=== PATIENT | female | born 1995 | race Caucasian/White ===

== ENCOUNTER → 2017-11-29 | Outpatient (CLI) | payer MEDICAID ==
[~2017-11-29] MED LIST: ACET-789 PO; FERR325T18 PO; IBUP-1773 PO; PREN1TAB86 PO
--- NOTE | 2017-11-29 17:15 | Diagnostic Imaging Report ---
PROCEDURE: US OB SINGLE FETUS <14 WKS. TECHNIQUE: Multiple real-time grayscale images were obtained over the gravid uterus in various projections. INDICATION: Evaluation for size and dates. Unknown LMP. FINDINGS: There is presence of an intrauterine fluid collection compatible with gestational sac. Gestational sac configuration appears unremarkable. No abnormal perigestational fluid collections. The crown-rump length is 21.40 mm with an estimated age of 8 weeks 6 days. cardiac activity 181 beats per minute. Imaging of the adnexa demonstrates nonvisualization of either ovary. IMPRESSION: Early viable intrauterine with estimated age of 8 weeks 6 days for sonographic estimated date of delivery July 05, 2018. Dictated by: Dictated on workstation # [id number]
== END ==
LOC: RAD 10:03
PROVIDERS: ATTEND Family Medicine
DX: Z34.91 Encounter for supervision of normal pregnancy, unspecified, first trimester (principal); Z3A.08 8 weeks gestation of pregnancy
CPT/HCPCS: 76801

== ENCOUNTER 2018-06-16 06:47 | Outpatient (CLI) | payer MEDICAID ==
[~2018-06-16] VITALS: Ht 160 cm; Wt 113.5 kg
--- NOTE | 2018-06-16 06:55 | NUR ---
CHRISTINA WASHINGTON presented to unit ambulatory from home, accompanied by spouse James. with c/o CONTRACTIONS and decreased movement. CHRISTINA WASHINGTON weighed, gowned, voided, and to bed. EFHM and TOCO applied, VS taken. CHRISTINA WASHINGTON oriented to bed controls, call light, TV, heat, and A/C controls.
[2018-06-16 07:40] VITALS: BP 105/60
--- NOTE | 2018-06-16 08:50 | NUR ---
Yordy dc'd and steri strips applied. Addendum: 06/16/18 at 1128 by EVY MARX RN leah chart
--- NOTE | 2018-06-16 09:20 | NUR ---
Dr Angulo (rehabilitation inspector) no answer on cell phone - called office and message left on answering service. [phone] Text message on cell phone to call regarding pt admission. Addendum: 06/16/18 at 1132 by EVY MARX RN [phone] Angulo. Orders for discharge.
[2018-06-16 10:25] LABS: BILIRUBIN,URINE NEGATIVE (NEGATIVE); CLARITY,URINE SLIGHTLY CLOUDY; COLOR,URINE YELLOW; GLUCOSE, URINE (UA) NEGATIVE (NEGATIVE); KETONES,URINE NEGATIVE (NEGATIVE); LEUKOCYTE ESTERASE ,URINE NEGATIVE (NEGATIVE); NITRITE,URINE NEGATIVE (NEGATIVE); PH,URINE 6 (5-9); PROTEIN,URINE NEGATIVE (NEGATIVE); UROBILINOGEN,URINE NORMAL (NORMAL)
--- NOTE | 2018-06-16 10:45 | NUR ---
Discharge ambulatory to home. Pt denies contractions. Out pt OB discharge instructions given. Verbalized understanding.
[2018-06-16 10:47] LABS: BACTERIA,URINE FEW /HPF; RBC,URINE RARE /HPF; WBC,URINE RARE /HPF
--- NOTE | 2018-06-19 22:02 | Physician Query-Final Dx ---
SHARON STACK 06/19/18 2202: Clinic Account Progress/Dx Physician Query: Please give diagnosis Date of Service Jun 16, 2018 at 06:47 DAMIÁN FERREIRA DO 06/26/18 1110: Clinic Account Progress/Dx DIAGNOSIS: Diagnosis 37 week GA contractions, not in active labor SHARON STACK Jun 19, 2018 22:02 DAMIÁN FERREIRA DO Jun 26, 2018 11:10
== END 2018-06-16 10:45 ==
LOC: WSo 06:47 → LDRP 06:49 → WSo 10:45
PROVIDERS: ATTEND Family Medicine
DX: O62.9 Abnormality of forces of labor, unspecified (principal); Z3A.37 37 weeks gestation of pregnancy
CPT/HCPCS: 81000; 87088; 99213

== ENCOUNTER 2018-07-05 05:52 | Inpatient (IN) | payer MEDICAID ==
[~2018-07-05] VITALS: Ht 157.5 cm; Wt 118.5 kg
[2018-07-05] VITALS (34 sets, daily range): BP systolic 108–136; BP diastolic 52–83
--- NOTE | 2018-07-05 06:02 | NUR ---
CHRISTINA WASHINGTON presented to unit via ambulation from ED, accompanied by SO, with plan for induction of labor EDC 07/05/2018. CHRISTINA WASHINGTON weighed, gowned, voided, and to bed. EFHM and TOCO applied, VS taken. CHRISTINA WASHINGTON oriented to bed controls, call light, TV, heat, and A/C controls.
[2018-07-05] MEDS ORDERED: D5 LR IV SOLUTION 1,000 ML IV ONE (06:04)
[2018-07-05] MEDS: D5 LR IV SOLUTION 1,000 ML IV SCH ×2 (06:25→13:06)
[2018-07-05 06:43] LABS: BASOPHILS % (AUTO) 0 % (0-10); EOSINOPHILS # (AUTO) 0.1 10^3/uL (0.0-0.3); EOSINOPHILS % (AUTO) 2 % (0-10); HEMATOCRIT 29 % (35-52); HEMOGLOBIN 9.5 G/DL (11.5-16.0); LYMPHOCYTES # (AUTO) 2.3 X 10^3 (1.0-4.0); LYMPHOCYTES % (AUTO) 30 % (12-44); MEAN CORPUSCULAR HEMOGLOBIN 24 PG (25-34); MEAN CORPUSCULAR HGB CONC 32 G/DL (32-36); MEAN CORPUSCULAR VOLUME 75 FL (80-99); MEAN PLATELET VOLUME 9.1 FL (7.4-10.4); MONOCYTES # (AUTO) 0.5 X 10^3 (0.0-1.0); MONOCYTES % (AUTO) 6 % (0-12); NEUTROPHILS # (AUTO) 4.7 X 10^3 (1.8-7.8); NEUTROPHILS % (AUTO) 61 % (42-75); PLATELET COUNT 254 10^3/uL (130-400); RED CELL DISTRIBUTION WIDTH 15.8 % (10.0-14.5); WHITE BLOOD COUNT 7.6 10^3/uL (4.3-11.0)
[2018-07-05] MEDS ORDERED: OXYTOCIN/NORMAL SALINE 500 ML IV ONE (07:50)
[2018-07-05] MEDS ORDERED: OXYTOCIN/NORMAL SALINE 500 ML IV SCH ×2 (07:51→21:29)
--- NOTE | 2018-07-05 12:31 | History & Physical-OB ---
OB - Chief Complaint & HPI Date/Time Date of Admission: Date of Admission: Jul 05, 2018 at 05:52 Date seen by a Provider: Jul 05, 2018 Time Seen by a Provider: 12:15 Chief Complaint/History OB-Reason for Admission/Chief: Induction of Labor Hx : 2 Hx Para: 1 Expected Date of Delivery: Jul 05, 2018 Gestational Age in Weeks: 40 Gestational Age in Days: 0 Indication for induction: post dates Admission Nurse Assessment Rev: Yes History of Labs AB+, antibody neg, RI. HIV/HepB/RPR NR. GC/chlamydia neg. Glucola nml. GBS neg. Allergies and Home Medications Allergies Coded Allergies: latex (Verified Allergy, Unknown, 07/05/18) Home Medications Vit W-Ca,Fe,FA(<1 mg) 1 Each Tablet, 1 EACH PO DAILY, (Reported) Patient Home Medication List Home Medication List Reviewed: Yes OB - History Hx of Present Care: Yes Ultrasounds: Normal mid trimester US Obstetrical Complications: None Medical Complications: None Information Induced Hypertension: No Maternal Gestational Diabetes: No Hemorrhage: No Obstetrical History Hx : 2 Hx Para: 1 Hx # Term Pregnancies: 1 Hx # Pregnancies: 0 Number of Living Children: 1 Hx Termination: No Hx Multiple Gestation: No Hx Ectopic : No Hx Stillbirth: No Hx Complication: No Hx Induced Hypertens: No Hx Maternal Gestational Diabet: No Hx Hemorrhage: No Delivery History Hx Dystocia: No Hx Forceps Assisted Delivery: No Hx Vacuum Extraction Assisted: No Hx Placenta Abnormality: No Hx Distress: No Hx Large For Gestational Age I: No Hx Small for Gestational Age I: No Hx Section: No Hx Vaginal Delivery Post C-Sec: No Hx Blood Disorders: No Adverse Rxn to Tranfusion: No Patient Past Medical History Depression Social History/Family History HIV/AIDS: No Recent Infectious Disease Expo: No Sexually Transmitted Disease: Yes Alcohol Use: Denies Use Recreational Drug Use: No Smoking Cessation: Never smoker Immunizations Hepatitis A: No Hepatitis B: No Tetanus Booster (TDap): Less than 5yrs (05/09/2018) Rubella: immune OB - Admission Exam Physical Exam Vitals: Vital Signs 07/05/18 07/05/18 07/05/18 07:15 09:45 10:15 Temp 97.4 Pulse 93 Resp 18 B/P (MAP) 119/64 (82) O2 Delivery Room Air HEENT: NCAT Abdomen: Non tender Extremities: Edema Cervical Dilatation: 6cm Effacement: 50% Station: -3 Membranes: Intact Heart Rate: 140's Accelerations: Accelerations Present Decelerations: No Decelerations Short Term Variability: Present Contracting Executive Variability: Average (6-25) Contractions on Admission: None Glaser Scoring Tool (Modified) Dilation (cm): >5cm (3) Effacement (%): 51-79% (2) Descent/Station: -3 (0) Cervix Consistency: Soft (2) Cervix Position: Posterior (0) Add 1 point for: Each previous vaginal delivery (1) Glaser Score: 8 Labs Laboratory Tests Test 07/05/18 06:25 Range/Units White Blood Count 7.6 4.3-11.0 10^3/uL Red Blood Count 3.94 L 4.35-5.85 10^6/uL Hemoglobin 9.5 L 11.5-16.0 G/DL Hematocrit 29 L 35-52 % Mean Corpuscular Volume 75 L 80-99 FL Mean Corpuscular Hemoglobin 24 L 25-34 PG Mean Corpuscular Hemoglobin Concent 32 32-36 G/DL Red Cell Distribution Width 15.8 H 10.0-14.5 % Platelet Count 254 130-400 10^3/uL Mean Platelet Volume 9.1 7.4-10.4 FL Neutrophils (%) (Auto) 61 42-75 % Lymphocytes (%) (Auto) 30 12-44 % Monocytes (%) (Auto) 6 0-12 % Eosinophils (%) (Auto) 2 0-10 % Basophils (%) (Auto) 0 0-10 % Neutrophils # (Auto) 4.7 1.8-7.8 X 10^3 Lymphocytes # (Auto) 2.3 1.0-4.0 X 10^3 Monocytes # (Auto) 0.5 0.0-1.0 X 10^3 Eosinophils # (Auto) 0.1 0.0-0.3 10^3/uL Basophils # (Auto) 0.0 0.0-0.1 10^3/uL OB - Assessment/Plan/Diagnosis Assessment Assessment: induction of labor Admission Dx Induction of labor at 40 weeks gestation Admission Status: Inpatient Order (span 2 midnights) Reason for Inpatient Admission: Induction, labor and delivery and course Plan Plan: Induction Induction Method: per Pitocin Protocol RANJANA HSU MD Jul 05, 2018 12:31
--- NOTE | 2018-07-05 12:33 | Labor Progress Note ---
Labor Progress Note Labor Progress Note Date Seen by Provider: Jul 05, 2018 Time Seen by Provider: 12:15 Subjective: Pt denies complaints. Contractions moderately painful, on 18 mU pitocin Objective: Cervical exam: 60/-3 Consistency: soft Position: posterior Presentation: vertex heart tones: 140 beats per minute, moderate variability, reactive Tocometer: 3-4 ctx/10 minutes Assessment/Plan: Haven Valdes is a 22 /Para / ,Gestational Age (wks)40 here for induction of labor. FSE placed/TOCO Continue pitocin/AROM done with clear fluid Anesthesia: none Anticipate vaginal delivery. Vitals - Labs Vital Signs - I&O Vital Signs Date Time Temp Pulse Resp B/P (MAP) Pulse Ox O2 Delivery O2 Flow Rate FiO2 07/05/18 10:30 07/05/18 10:15 93 18 119/64 (82) 07/05/18 10:00 07/05/18 09:45 07/05/18 09:45 97.4 88 18 112/62 (79) 07/05/18 09:30 83 18 108/59 (75) 07/05/18 09:15 82 18 111/57 (75) 07/05/18 09:00 82 18 110/58 (75) 07/05/18 07:15 96.5 93 18 112/68 (83) Room Air Labs Laboratory Tests 07/05/18 06:25: White Blood Count 7.6, Red Blood Count 3.94L, Hemoglobin 9.5L, Hematocrit 29L, Mean Corpuscular Volume 75L, Mean Corpuscular Hemoglobin 24L, Mean Corpuscular Hemoglobin Concent 32, Red Cell Distribution Width 15.8H, Platelet Count 254, Mean Platelet Volume 9.1, Neutrophils (%) (Auto) 61, Lymphocytes (%) (Auto) 30, Monocytes (%) (Auto) 6, Eosinophils (%) (Auto) 2, Basophils (%) (Auto) 0, Neutrophils # (Auto) 4.7, Lymphocytes # (Auto) 2.3, Monocytes # (Auto) 0.5, Eosinophils # (Auto) 0.1, Basophils # (Auto) 0.0 RANJANA HSU MD Jul 05, 2018 12:33
[2018-07-05] MEDS ORDERED: CATHETER FLUSH 10 ML SYR IV SCH ×2 (14:00→22:00)
[2018-07-05] MEDS ORDERED: SUFENTA 0.6MCG/ML BUPIVA 0.125 100 ML ONE (19:12)
[2018-07-05] MEDS ORDERED: LACTATED RINGERS 1,000 ML IV ONE (19:15)
[2018-07-05] MEDS ORDERED: LACTATED RINGERS 1,000 ML IV SCH (19:47)
[2018-07-05] MEDS ORDERED: ONDANSETRON 4 MG/2 ML (SDV) Z0FRAN IV PRN (20:00)
[2018-07-05] MEDS ORDERED: NALOXONE 0.4 MG/ML 1 ML (NARCAN) VIAL IV PRN ×2 (20:00)
[2018-07-05] MEDS ORDERED: EPIDURAL (SUFENTA 0.6MCG/ML BUPIVA 0.125%) 100 ML BAG EPI SCH (20:00)
[2018-07-05] MEDS ORDERED: METOCLOPRAMIDE INJ 10 MG/2 ML (REGLAN) IV PRN (20:00)
[2018-07-05] MEDS ORDERED: diphenhydrAMINE 50 MG/ML INJ (BENADRYL) IV PRN (20:00)
[2018-07-05] MEDS ORDERED: CITRIC ACID/SOB CIT (BICITRA) 30 ML UDC ONE (20:32)
[2018-07-05] MEDS ORDERED: metroNIDAZOLE 500MG/100ML IVPB 100 ML ONE (20:32)
[2018-07-05] MEDS ORDERED: ceFAZolin 2 GM IV Premixed 50 ML ONE (20:33)
[2018-07-05] MEDS ORDERED: FAMOTIDINE 20MG/2ML IV (PEPCID) ONE (20:33)
[2018-07-05] MEDS ORDERED: D5 LR IV SOLUTION 1,000 ML IV SCH ×2 (21:26→21:29)
[2018-07-05] MEDS ORDERED: ONDANSETRON 4 MG/2 ML (SDV) Z0FRAN ONE (21:29)
[2018-07-05] MEDS ORDERED: LIDOCAINE PF 2% 5 ML (XYLOCAINE) VIAL ONE (21:29)
[2018-07-05] MEDS ORDERED: OXYTOCIN/NORMAL SALINE 1,000 ML IV ONE (21:29)
[2018-07-05] MEDS ORDERED: BUPIVACAINE 0.5% 30 ML (SENSORCAINE) VIAL ONE (21:29)
[2018-07-05] MEDS ORDERED: fentaNYL INJECTION 100 MCG/2 ML AMP ONE (21:29)
[2018-07-05] MEDS ORDERED: ONDANSETRON 4 MG/2 ML (SDV) Z0FRAN IVP PRN ×2 (21:30→23:00)
[2018-07-05] MEDS ORDERED: ceFAZolin INJECTION 2,000 MG in WATER (STERILE) FOR INJECTION 10 ML IV ONE (21:30)
[2018-07-05] MEDS ORDERED: metroNIDAZOLE 500MG/100ML IVPB 100 ML IV ONE (21:30)
[2018-07-05] MEDS ORDERED: MEASLES,MUMPS,RUBELLA 1 EA INJ SC SCH (21:30)
[2018-07-05] MEDS ORDERED: TETANUS,DIPTH,PERTUSS P/F (BOOSTRIX) 0.5 ML VIAL IM SCH (21:30)
[2018-07-05] MEDS ORDERED: METHYLERGONOVINE 0.2 MG/ML (METHERGINE) AMP ONE (22:17)
[2018-07-05] MEDS ORDERED: MEPERIDINE (DEMEROL) INJ 50 MG/ML IVP ONE (23:00)
[2018-07-05] MEDS ORDERED: morphine INJ 10 MG/ML 1ML (SYR OR VIAL) IVP ONE (23:00)
[2018-07-06] MEDS ORDERED: KETOROLAC 30 MG/ML VIAL ONE (00:03)
[2018-07-06] MEDS: KETOROLAC 30 MG/ML VIAL IV SCH ×2 (00:10→05:49)
[2018-07-06] MEDS ORDERED: METOCLOPRAMIDE INJ 10 MG/2 ML (REGLAN) IV ONE (00:45)
[2018-07-06] MEDS ORDERED: FAMOTIDINE 20MG/2ML IV (PEPCID) IV ONE (00:45)
[2018-07-06] MEDS ORDERED: CITRIC ACID/SOB CIT (BICITRA) 30 ML UDC PO ONE (00:45)
[2018-07-06 01:57] VITALS: BP 108/70
[2018-07-06] MEDS ORDERED: METHYLERGONOVINE 0.2 MG/ML (METHERGINE) AMP ONE (03:08)
[2018-07-06] MEDS ORDERED: METHYLERGONOVINE 0.2 MG/ML (METHERGINE) AMP IM ONE (03:15)
--- NOTE | 2018-07-06 03:55 | OPERATIVE REPORT ---
DATE OF SERVICE: 07/05/2018 PREOPERATIVE DIAGNOSIS: Term at 40 weeks' gestation in labor with failure to progress/cephalopelvic disproportion. POSTOPERATIVE DIAGNOSIS: Term at 40 weeks' gestation in labor with failure to progress/cephalopelvic disproportion with persistent OP. OPERATIVE PROCEDURE: Primary low transverse delivery of a viable male with Apgars of 8 and 9 at 1 and 5 minutes. Expected weight 9 pounds 9 ounces. time of 22:11 and a cord blood pH of 7.31. MULTIFOCAL BUTTON GENERATOR FOR DELIVERY: Dr. Oliva. OPERATIVE DESCRIPTION: With the patient in the supine position under satisfactory epidural analgesia, she was prepped and draped in the usual fashion for abdominal surgery. Fajardo catheter had been placed in the urinary bladder during labor that was left to dependent drainage. A Pfannenstiel incision made through skin with a scalpel. The patient's abdomen entered in the usual manner. Bladder retractor placed in position, clean scalpel used to make a 4 cm hysterotomy incision transversely across the lower uterine segment that was extended by blunt dissection as well. A vigorous viable male infant was delivered via the uterine incision and infant had stats as noted above. The was bulb suctioned on delivery of the head and again on completion of delivery. The umbilical cord was doubly clamped and cut and the infant passed to Dr. Oliva, fast food cook in attendance for delivery. Cord bloods were obtained. The placenta delivered spontaneously Porter. It was normal with a 3-vessel cord. The uterus was exteriorized and to wipe clean with laparotomy sponge. Uterine incision then closed with a running locked suture of 2-0 Vicryl. The uterus was quite boggy. Blood loss was not excessive at this point, but the patient was responding only minimally to Pitocin and had gotten a dose of Methergine with very little obvious response. A modified B-Ross suture was placed using 2-0 chromic sutures. This compressed the uterus nicely and blood loss was fairly minimal from that point on. The uterus was now returned to abdominal cavity. All blood clot and debris removed from the abdominal cavity. Sponge and needle counts correct, hemostasis assured. The anterior parietal peritoneum was closed with a running suture of 2-0 Vicryl. Rectus muscles were closed with that suture as well. The rectus fascia was closed with 2-0 Vicryl, subcutaneous tissue was closed with 2-0 Vicryl and the skin was stapled. Sponge and needle counts were correct on completion of delivery. Estimated blood loss was around 500 mL. The patient tolerated the delivery well and was transferred to recovery room in stable condition. The infant had been stable to the full term nursery under the care of Dr. Oliva. Job ID: [id number] DocumentID: [id number] Dictated Date: 07/05/2018 22:48:17 Orthopedic Surgeon Date: 07/06/2018 03:54:36 Dictated By: JAMIR SHIN MD
[2018-07-06] MEDS: oxyCODONE/APAP 10/325MG (PERCOCET 10) TABLET PO PRN ×3 (04:28→16:39)
[2018-07-06 05:53] VITALS: BP 126/75
--- NOTE | 2018-07-06 07:40 | Progress Note-Standard ---
Standard Progress Note Progress Notes/Assess & Plan Date Seen by a Provider: Jul 06, 2018 Time Seen by a Provider: 07:38 Progress/Assessment & Plan This patient is without complaint. She is ambulating, voiding, tolerating oral intake well and has pain control. Patient denies chest pain, denies direct, denies nausea vomiting, denies headache. Vital Signs 07/05/18 07/06/18 23:55 05:53 Temp 98.4 Pulse 101 Resp 18 B/P (MAP) 126/75 (92) Pulse Ox 96 O2 Delivery Room Air O2 Flow Rate 0 Signs are stable. Patient is afebrile. The abdomen is benign. Fundus is firm below the umbilicus is nontender. The surgical incision is clean dry and intact Extremities show no clubbing or cyanosis. Homans sign. Assessment and plan postoperative day number 1 status post primary delivery doing well. Plan is for routine convalescence care JAMIR SHIN MD Jul 06, 2018 07:40
--- NOTE | 2018-07-06 07:40 | NUR ---
Dr. Mayorga here to see pt. No new orders rec'd
--- NOTE | 2018-07-06 07:42 | Anesthesia-Regional Post-Op ---
Regional Patient Condition Mental Status: Alert, Oriented x3 Circulation: Same as Pre-Op Headache: Absent Sensation: Full Recovery Motor Block: Absent Post Op Complications Complications None Follow Up Care/Instructions Patient Instructions None needed. Anesthesia/Patient Condition Patient is doing well, no complaints, stable vital signs, no apparent adverse anesthesia problems. No complications reported per nursing. NIYA ZUNIGA CRNA Jul 06, 2018 07:42
[2018-07-06] MEDS ORDERED: OXYC1TAB12 PO (07:43)
[2018-07-06] MEDS ORDERED: IBUP-1780 PO (07:43)
[2018-07-06] MEDS ORDERED: DOCU100C37 PO (07:43)
--- NOTE | 2018-07-06 07:44 | Discharge Instructions ---
Discharge Instructions Discharge Medications New, Converted or Re-Newed RX: RX on Chart Patient Instructions Patient Instructions: as directed Return to The Hospital For: as directed Activity & Diet Discharge Diet: No Restrictions Activity as Tolerated: No Orders-Post D/C & Referrals Follow Up Appt: RTC 1 week for incision check with Dr. Mayorga Call to make follow up appt. for patient with Dr. Oliva in 6 weeks. Wound Care: Remove emma, apply benzoin and steri strips. Activity Per routine post instructions. Please call in RX to patient pharmacy. Diet as tolerated Patient may shower or tub bathe as desired. Continue home meds JAMIR MAYORGA MD Jul 06, 2018 07:44
--- NOTE | 2018-07-06 07:50 | NUR ---
To room to introduce self to pt. Pt just out of shower, denies needs or concerns at this time.
[2018-07-06 08:00] VITALS: BP 110/64
[2018-07-06] MEDS: DOCUSATE SODIUM 100 MG (COLACE) CAP PO SCH (09:26)
--- NOTE | 2018-07-06 11:30 | NUR ---
PT UP AMBULATING IN HALLWAYS
[2018-07-06] MEDS ORDERED: IBUPROFEN 800 MG (MOTRIN) TAB PO ONE ×2 (11:57→18:06)
[2018-07-06] MEDS: IBUPROFEN 800 MG (MOTRIN) TAB PO SCH ×2 (12:01→18:10)
[2018-07-06 12:02] VITALS: BP 112/68
--- NOTE | 2018-07-06 16:00 | NUR ---
PT UP AMBULATING IN HALLWAYS
[2018-07-06 16:36] VITALS: BP 114/71
--- NOTE | 2018-07-06 17:00 | NUR ---
DR SHIN HERE TO SEE PT. NO NEW ORDERS REC'D
[2018-07-07 00:12] VITALS: BP 94/59
[2018-07-07] MEDS: IBUPROFEN 800 MG (MOTRIN) TAB PO SCH ×3 (00:12→12:15)
[2018-07-07] MEDS: DOCUSATE SODIUM 100 MG (COLACE) CAP PO SCH ×2 (00:12→08:34)
[2018-07-07 06:13] VITALS: BP 103/60
--- NOTE | 2018-07-07 07:42 | Progress Note-Standard ---
Standard Progress Note Progress Notes/Assess & Plan Date Seen by a Provider: Jul 07, 2018 Time Seen by a Provider: 07:40 Progress/Assessment & Plan This patient is without complaint. She is ambulating, voiding, tolerating oral intake well and has pain control. Patient denies chest pain, denies direct, denies nausea vomiting, denies headache. Vital Signs 07/05/18 07/06/18 23:55 05:53 Temp 98.4 Pulse 101 Resp 18 B/P (MAP) 126/75 (92) Pulse Ox 96 O2 Delivery Room Air O2 Flow Rate 0 Signs are stable. Patient is afebrile. The abdomen is benign. Fundus is firm below the umbilicus is nontender. The surgical incision is clean dry and intact Extremities show no clubbing or cyanosis. Homans sign. Assessment and plan postoperative day number 1 status post primary delivery doing well. Plan is for routine convalescence care July 07, 2018 Patient without complaint. She is ambulating, voiding, tolerating oral intake well and has good pain control. Patient is requesting discharge home. Vital Signs Date Time Temp Pulse Resp B/P (MAP) Pulse Ox O2 Delivery O2 Flow Rate FiO2 07/07/18 06:13 98.5 95 18 103/60 (74) 98 Room Air 07/07/18 00:12 98.3 81 18 94/59 (71) 97 Room Air 07/06/18 16:36 96.8 98 18 114/71 (85) 99 Room Air 07/06/18 12:02 98.5 85 18 112/68 (83) 99 07/06/18 08:00 97.2 103 18 110/64 (79) 99 Room Air I & O 07/07/18 07:00 Intake Total 800 ml Output Total 1250 ml Balance -450 ml Signs are stable. Patient is afebrile. The abdomen is benign. Fundus is firm below the umbilicus and nontender. The incision is clean dry and intact. Extremities show no clubbing or cyanosis. There is no Homans sign. Assessment and plan postoperative day number 2 status post primary delivery at 40 weeks gestation. Plan is for discharge home with follow-up in clinic Final Diagnosis 40 week primary delivery JAMIR SHIN MD Jul 07, 2018 07:42
[2018-07-07 08:00] VITALS: BP 113/59
--- NOTE | 2018-07-07 08:00 | NUR ---
DR. SHIN HERE TO SEE PT. A.M. ASSESSMENT COMPLETED AND VSS. PLANNING TO GO HOME TODAY.
[2018-07-07] MEDS: oxyCODONE/APAP 10/325MG (PERCOCET 10) TABLET PO PRN (08:35)
--- NOTE | 2018-07-07 09:00 | NUR ---
PT HAS HAD THE TDAP VACCINE.
--- NOTE | 2018-07-07 09:30 | NUR ---
DR. JOHN HERE TO SEE . PLAN FOR INFANT TO GO HOME.
--- NOTE | 2018-07-07 10:30 | NUR ---
INFANT WITH OCC SUPPLEMENT. HAS BEEN IN ROOM OFFERING ASSIST.
--- NOTE | 2018-07-07 11:00 | NUR ---
[id number] HERE TO TAKE PICTURES.
--- NOTE | 2018-07-07 11:50 | NUR ---
JORGE D/C'ED AND STERI STRIPS APPLIED. TINCTURE OF BENZOIN A SKIN PREP UTILIZED. EDGES WELL-APPROXIMATED, NO REDNESS, DRAINAGE, OR OPEN AREAS. TOLERATED WELL.
--- NOTE | 2018-07-07 13:30 | NUR ---
DISCHARGE INSTRUCTIONS REVIEWED WITH COPY TO PT. RX GIVEN AND CALLED TO [facility]. STATES UNDERSTANDING OF ALL INSTRUCTIONS AND NEED TO F/U SCHEDULED AND NEEDED.
[2018-07-07 14:00] VITALS: BP 113/59
--- NOTE | 2018-07-07 14:00 | NUR ---
DISMISSED FROM [facility] VIA W/C WITH INFANT TO FAMILY CAR IN STABLE CONDITION ACC BY JOSE SHETH RN.
== END 2018-07-07 14:00 | disposition home or self-care (01) | DRG 788 ==
LOC: LDRP 05:52
PROVIDERS: ADMIT Family Medicine; ATTEND Family Medicine
PROC: 3E033VJ Introduction of Other Hormone into Peripheral Vein, Percutaneous Approach (ICD-10-PCS; 2018-07-05)
PROC: 10D00Z1 Extraction of Products of Conception, Low, Open Approach (ICD-10-PCS; principal; 2018-07-05 21:54)
DX: O64.0XX0 Obstructed labor due to incomplete rotation of fetal head, not applicable or unspecified (principal); O33.9 Maternal care for disproportion, unspecified; Z3A.40 40 weeks gestation of pregnancy; Z37.0 Single live birth
CPT/HCPCS: 36415; 85025; 86850; 86900; 86901; 88307; 94664

== ENCOUNTER 2018-07-29 02:25 | Emergency (ER) | payer MEDICAID ==
[~2018-07-29] VITALS: Ht 157.5 cm; Wt 104.3 kg
[~2018-07-29 02:25] MED LIST changes: +DOCU100C37 PO; +IBUP-1780 PO; +OXYC1TAB12 PO
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
[2018-07-29] MEDS ORDERED: LIDOCAINE 1% INJ 20 ML 20 ML VIAL INJ ONE (03:45)
--- NOTE | 2018-07-29 03:47 | ED Integumentary General ---
General Chief Complaint: Skin/Wound Problems Stated Complaint: HANGNAIL ON RT POINTER FINGER-INFECTED Nursing Triage Note: Right index finger swollen around the nailbed. Pt said it started swelling today and is painful Source: patient Exam Limitations: no limitations History of Present Illness Date Seen by Provider: July 29, 2018 Time Seen by Provider: 03:32 Initial Comments Here with report of right index finger and thumb side aspect of the nail that is swollen and painful. Worse today and states that it changed color. Reports that the finger is throbbing. No reported injury. No fever. She is 3 weeks and is breast-feeding. She take ibuprofen 800 mg about 2 hours ago. Timing/Duration: yesterday, getting worse Severity: moderate Location: hands Possible Cause: no cause identified Associated Symptoms: change in skin texture, edema; No fever Allergies and Home Medications Allergies Coded Allergies: latex (Verified Allergy, Unknown, 07/05/18) Home Medications Docusate Sodium 100 Mg Capsule, 100 MG PO BID Prescribed by: JAMIR MARQUEZ on 07/06/18 0743 Ibuprofen 800 Mg Tablet, 800 MG PO Q8H Prescribed by: JAMIR MARQUEZ on 07/06/18 0743 Oxycodone HCl/Acetaminophen 1 Each Tablet, 1 TAB PO Q4HR PRN for PAIN-MODERATE TO SEVERE Prescribed by: JAMIR MARQUEZ on 07/06/18 0743 Vit W-Ca,Fe,FA(<1 mg) 1 Each Tablet, 1 EACH PO DAILY, (Reported) Patient Home Medication List Home Medication List Reviewed: Yes Review of Systems Review of Systems Constitutional: see HPI; No chills, No fever Respiratory: no symptoms reported Cardiovascular: no symptoms reported Skin: see HPI, change in color, lesions Past Vuyatxn-Ceplvz-Lbblsg Hx Past Med/Social Hx: Reviewed Nursing Past Med/Soc Hx Patient Social History Alcohol Use: Denies Use Recreational Drug Use: No Smoking Status: Never a Smoker Former Smoker, Quit: Dec 19, 2013 2nd Hand Smoke Exposure: No Recent Foreign Travel: No Contact w/Someone Who Travel: No Recent Infectious Disease Expo: No Recent Hopitalizations: No Immunizations Up To Date Tetanus Booster (TDap): Less than 5yrs PED Vaccines UTD: No Seasonal Allergies Seasonal Allergies: No Past Medical History Surgeries: Yes (pilonidal cyst) Respiratory: No Cardiac: No Neurological: No Reproductive Disorders: No Female Reproductive Disorders: Denies Sexually Transmitted Disease: Yes HIV/AIDS: No Genitourinary: No Gastrointestinal: No Musculoskeletal: No Endocrine: No HEENT: No Cancer: No Psychosocial: No Anxiety, PTSD, Depression Integumentary: No Blood Disorders: No Adverse Reaction/Blood Tranf: No Family Medical History Reviewed Nursing Family Hx FH: hemophilia paternal gm Physical Exam Vital Signs Vital Signs - First Documented 07/29/18 02:46 Temp 97.8 Pulse 90 Resp 16 B/P (MAP) 97/64 (75) Pulse Ox 99 O2 Delivery Room Air Capillary Refill : Less Than 3 Seconds General Appearance: WD/WN, no apparent distress Cardiovascular: regular rate, rhythm, no murmur Respiratory: lungs clear, normal breath sounds Skin: warm/dry, other (right index finger and thumb side of the nailbed with paronychia and some redness) Procedures/Interventions I&D : Blade Size: 10 I & D Procedure: betadine prep Progress Paronychia I&D to right index finger thumb side. Tolerated procedure well palpitations. Small amount of purulent drainage obtained. Culture obtained. Progress/Results/Core Measures Results/Orders My Orders Orders - NINA GUERRA MD Wound Culture (07/29/18 03:41) Lidocaine 1% Inj 20 Ml (Xylocaine 1% Inj (07/29/18 03:45) Vital Signs/I&O 07/29/18 02:46 Temp 97.8 Pulse 90 Resp 16 B/P (MAP) 97/64 (75) Pulse Ox 99 O2 Delivery Room Air Blood Pressure Mean: 75 Progress Progress Note : Progress Note Seen and evaluated. Digital block right index finger with 1% lidocaine. I&D of paronychia on right index finger. Wound culture obtained. Covered with antibiotic ointment and dressing. Tolerated procedure well with no complications. Keflex 500 mg by mouth given. Discharged home with return precautions. Patient verbalize understanding instructions and agreement with plan. Departure Impression Primary Impression: Paronychia of finger of right hand Disposition: 01 HOME, SELF-CARE Condition: Improved Departure-Patient Inst. Decision time for Depature: 04:05 Referrals: RANJANA HSU MD (PCP/Family) Primary Care Physician Patient Instructions: Paronychia (DC) Add. Discharge Instructions: All discharge instructions reviewed with patient and/or family. Voiced understanding. Take medications as directed. You may take ibuprofen 800 mg every 8 hours as needed for pain. Return for worse pain, swelling, red streaks up the hand, fever or other concerns as needed. Keep dressing in place until Tuesday morning and that he may remove. You may change dressing as needed if it becomes soiled. Use antibiotic ointment and Band-Aid over wound after dressing is removed. You may do this for the next several days as needed. Scripts Cephalexin (Cephalexin) 500 Mg Tablet 500 MG PO QID, #28 TAB 0 Refills Prov: NINA GUERRA MD 07/29/18 NINA GUERRA MD July 29, 2018 03:47
[2018-07-29] MEDS ORDERED: CEPH500T PO (04:07)
[2018-07-29] MEDS ORDERED: CEPHALEXIN 250 MG (KEFLEX) CAP PO STA (04:08)
[2018-07-29 04:16] VITALS: BP 99/62
== END 2018-07-29 04:18 | disposition home or self-care (01) ==
LOC: EDUNIT# 02:25 → ER 02:27
DX: O99.73 Diseases of the skin and subcutaneous tissue complicating the puerperium (principal); L03.011 Cellulitis of right finger; O99.345 Other mental disorders complicating the puerperium; F41.9 Anxiety disorder, unspecified; F32.9 Major depressive disorder, single episode, unspecified; F43.10 Post-traumatic stress disorder, unspecified; Z87.891 Personal history of nicotine dependence; Z91.040 Latex allergy status; Z98.890 Other specified postprocedural states
CPT/HCPCS: 87070; 87077; 87186; 87205; 99283

== ENCOUNTER 2019-03-09 20:13 | Emergency (ER) | payer SELFPAY ==
[~2019-03-09 20:13] MED LIST changes: +CEPH500T PO
== END 2019-03-09 20:56 | disposition left against medical advice (07) ==
LOC: EDUNIT# 20:13 → ER 20:14
DX: R11.10 Vomiting, unspecified (principal); R10.9 Unspecified abdominal pain

== ENCOUNTER 2020-09-03 05:41 | Outpatient (CLI) | payer OTHER ==
[~2020-09-03] VITALS: Ht 162.6 cm; Wt 126.4 kg
[2020-09-09] MEDS ORDERED: FERR-84 PO (12:19)
[2020-09-10] MEDS ORDERED: ACHD5005 PO (11:22)
== END 2020-09-09 12:20 | disposition home or self-care (01) ==
LOC: PREOP 05:41
PROVIDERS: ATTEND Surgery
DX: Z01.818 Encounter for other preprocedural examination (principal)

== ENCOUNTER 2020-09-10 09:41 | Day surgery (SDC) | payer OTHER ==
[~2020-09-10] VITALS: Ht 162.6 cm; Wt 126.4 kg
[2020-09-10] VITALS (11 sets, daily range): BP systolic 95–131; BP diastolic 48–80
[~2020-09-10 09:41] MED LIST changes: +FERR-84 PO
[2020-09-10] MEDS ORDERED: LIDOCAINE/EPI 1%-1:100,000 (XYLOCAINE) 20ML ONE (10:01)
[2020-09-10] MEDS ORDERED: ceFAZolin 2 GM IV Premixed 50 ML IV ONE (10:15)
[2020-09-10] MEDS ORDERED: LACTATED RINGERS 1,000 ML IV PRN (10:15)
[2020-09-10] MEDS ORDERED: SEVOFLURANE (ULTANE) 15 ML INHAL SOLN ONE ×2 (10:28→11:05)
[2020-09-10] MEDS ORDERED: ONDANSETRON 4 MG/2 ML (SDV) Z0FRAN ONE (10:28)
[2020-09-10] MEDS ORDERED: fentaNYL INJ 100 MCG/2 ML AMP ONE (10:28)
[2020-09-10] MEDS ORDERED: ROCURONIUM 10 MG/ML 5 ML SYRINGE IV ONE (10:28)
[2020-09-10] MEDS ORDERED: LIDOCAINE PF 2% 5 ML (XYLOCAINE) VIAL ONE (10:28)
[2020-09-10] MEDS ORDERED: proPOfol 200 MG/20 ML (DIPRIVAN) VIAL IV ONE ×2 (10:28→11:07)
[2020-09-10] MEDS ORDERED: MIDAZOLAM 2 MG/2 ML (VERSED) VIAL ONE (10:29)
--- NOTE | 2020-09-10 10:32 | Progress Note-Pre Operative ---
Pre-Operative Progress Note H&P Reviewed The H&P was reviewed, patient examined and no changes noted. Time Seen by Provider: 10:02 Date H&P Reviewed: Sep 10, 2020 Time H&P Reviewed: 10:02 Pre-Operative Diagnosis: Pilonidal cyst ALFONZO CAREY DO Sep 10, 2020 10:32
[2020-09-10] MEDS ORDERED: LIDOCAINE JELLY 2% 6 ML SYRINGE ONE (10:53)
--- NOTE | 2020-09-10 11:21 | Progress Note-Post Operative ---
Post-Operative Progess Note Surgeon (s)/Hvac Installation Technician (s) Surgeon ALFONZO CAREY DO Hvac Installation Technician: none Pre-Operative Diagnosis Pilonidal cyst Post-Operative Diagnosis same pending path Procedure & Operative Findings Date of Procedure 09/10/20 Procedure Performed/Findings I&D and excision of pilonidal cyst with debridement Anesthesia Type GET Estimated Blood Loss Estimated blood loss (mL): scant Specimens/Packing Specimens Removed pilonidal cyst ALFONZO CAREY DO Sep 10, 2020 11:21
[2020-09-10] MEDS ORDERED: ACHD5005 PO (11:22)
--- NOTE | 2020-09-10 11:23 | Discharge Inst-Surgical ---
Discharge Inst-Surgical Depart Medication/Instructions New, Converted or Re-Newed RX: RX Given to Pt/Family Patient Instructions Follow up Appt: Make appointment for 1 week. [phone] Instructions: No lifting greater than 20 pounds. No strenuous activity. May shower in 24 hours, no tub bath or soaking. Use incentive spirometer at home as directed. No Smoking Skin/Wound Care: May remove bandages in am. You need to change packing daily. Symptoms to Report: Appetite Changes, Extremity Discoloration, Numbness/Tingling, Swelling Increased, Bleeding Excessive, Eyesight Changes, Pain Increased, Urine Color Change, Constipation(Persistent), Fever over 101 degree F, Pain/Pressure in chest, Urinating Difficulty, Cough Up/Vomit Blood, Heart Beat Irreg/Pounding, Pain/Pressure in jaw, Cramps in feet or legs, Lightheadedness, Pain/Pressure in shoulder, Diarrhea(Persistent), Memory Changes Suddenly, Questions/Concerns, Weight gain consecutive days, Dizziness/Fainting, Nausea/Vomiting, Shortness of Breath, Weight gain over 2 pounds If questions or concerns contact your physician Or seek help at emergency department. Activity Activity as Tolerated: Yes Activity Instructions: Avoid Stress to Incision Driving Instructions: No Driving/Refer to Dr. Horta Discharge Diet: No Restrictions Diet After 24 Hours: Clear Liquid if Nauseous If Any Problems/Questions/Issu: Contact Your Physician, Go to Emergency Room Skin/Wound Care Infection Signs and Symptoms: Increased Redness, Foul Odor of Wound, Increased Drainage, Skin Itchy or Has a Rash, Increased Swelling, Temperature Above 101 F Bathing Instructions: ALFONZO Tai DO Sep 10, 2020 11:23
[2020-09-10] MEDS ORDERED: ONDANSETRON 4 MG/2 ML (SDV) Z0FRAN IVP PRN (11:30)
[2020-09-10] MEDS ORDERED: MEPERIDINE (DEMEROL) INJ 50 MG/ML IVP ONE (11:30)
[2020-09-10] MEDS ORDERED: morphine INJ 10 MG/ML 1ML (SYR OR VIAL) IVP ONE (11:30)
[2020-09-10] MEDS ORDERED: fentaNYL INJ 100 MCG/2 ML AMP IVP ONE (11:30)
--- NOTE | 2020-09-10 18:19 | OPERATIVE REPORT ---
DATE OF SERVICE: 09/10/2020 PREOPERATIVE DIAGNOSIS: Pilonidal cyst. POSTOPERATIVE DIAGNOSIS: Pilonidal cyst. PROCEDURE: Excision of pilonidal cyst with debridement and packing of subcutaneous fat. SURGEON: Cholo Machuca DO SHEET TESTER: None. ANESTHESIA: General endotracheal tube. SPECIMEN: Pilonidal cyst and necrotic tissue. BLOOD LOSS: Less than 5 mL. FLUIDS: Per anesthesia. POSTOPERATIVE CONDITION: Stable. INDICATION FOR PROCEDURE: The patient is a 24-year-old female who had had a previous pilonidal cyst surgery and had been doing well, but then it opened up. She started having drainage and attempted packing, but this did not help. FINDINGS: The patient had a pilonidal cyst. It was small, measured about 2.5 cm long x about 1.5 cm deep, necrotic tissue debrided. PROCEDURE NOTE: After informed consent was obtained, the patient was brought to the operating room. She was intubated and placed on table in prone position. She was then sterilely prepped and draped in normal fashion. She had a small 2-3 mm opening. I made elliptical incision to remove this, took off the skin and then carried down through the subcutaneous tissue, debriding subcutaneous fat and necrotic tissue along the corado, measured about 2.5cm long x about 1.5 cm deep, debrided all the corado just into the subcutaneous fat. Hemostasis obtained using Bovie electrocautery, then elected to pack with quarter inch iodoform packing. Area was cleaned and dried, dressing placed. The patient tolerated the procedure and transferred to recovery room in stable condition. Sponge, instrument and needle count correct at the end of the case. Job ID: [id number] DocumentID: [id number] Dictated Date: 09/10/2020 14:49:52 Garbage Collector Date: 09/10/2020 18:19:15 Dictated By: CHOLO MACHUCA DO [facility]
== END 2020-09-10 13:43 | disposition home or self-care (01) ==
LOC: SDC 09:41
PROVIDERS: ATTEND Surgery
DX: L05.01 Pilonidal cyst with abscess (principal); I96 Gangrene, not elsewhere classified; F32.9 Major depressive disorder, single episode, unspecified; F41.9 Anxiety disorder, unspecified; E66.01 Morbid (severe) obesity due to excess calories; Z87.891 Personal history of nicotine dependence; Z91.040 Latex allergy status; Z98.890 Other specified postprocedural states; Z68.42 Body mass index [BMI] 45.0-49.9, adult
CPT/HCPCS: 84703; 87081; 88304

== ENCOUNTER 2022-01-13 21:41 | Emergency (ER) | payer SELFPAY ==
[~2022-01-13] VITALS: Ht 162.6 cm; Wt 79.4 kg
[~2022-01-13 21:41] MED LIST changes: +ACHD5005 PO
[2022-01-13 22:00] VITALS: BP 140/96
--- NOTE | 2022-01-13 22:31 | ED Abdominal Pain ---
General Chief Complaint: OB < 20 WEEKS Stated Complaint: VAGINAL BLEEDING Nursing Triage Note: pt ambulatory to room. states she is 7 wks . lmp was --22. pt reports vaginal bleeding and "slight cramping" starting 2 hours ago Source of Information: Patient Exam Limitations: No Limitations History of Present Illness Date Seen by Provider: Jan 13, 2022 Time Seen by Provider: 22:13 Initial Comments This 26-year-old young lady presents to the emergency room at about 7 weeks gestational age with complaints of vaginal bleeding and cramping that started this evening. LMP was November 24. She is having associated back cramps. Bleeding is less than menstrual cycle flow. Blood type on record is a be positive. She denies any mechanical triggers such as intercourse today. She has an appointment to establish care with Dr. John for this on January 28. She recently got over a flulike syndrome when her son had influenza B. She has an ultrasound scheduled for 1400 at the [facility]. She has nausea without vomiting. No constipation or diarrhea. No vaginal discharge other than the mild bleeding. She denies risk factors for STIs. Allergies and Home Medications Allergies Coded Allergies: latex (Verified Allergy, Unknown, 07/05/18) Patient Home Medication List Home Medication List Reviewed: Yes Ferrous Sulfate (Iron) 325 Mg Tablet, 325 MG PO DAILY, (Reported) Entered as Reported by: RONNELL ADAMSON on 09/09/20 1219 Hydrocodone Bit/Acetaminophen (HYDROcodone/APAP 5 MG/325 MG TAB) 1 Tab Tab, 1 TAB PO Q8H PRN for PAIN-MODERATE (5-7) Prescribed by: ALFONZO CAREY on 09/10/20 1122 Review of Systems Review of Systems Constitutional: no symptoms reported EENTM: No Symptoms Reported Respiratory: No Symptoms Reported Cardiovascular: No Symptoms Reported Gastrointestinal: See HPI Genitourinary: See HPI Musculoskeletal: see HPI Skin: no symptoms reported Psychiatric/Neurological: No Symptoms Reported Endocrine: No Symptoms Reported Hematologic/Lymphatic: No Symptoms Reported Past Hacvadz-Ausgfl-Hfsjyn Hx Patient Social History Tobacco Use?: No Use of E-Cig and/or Vaping dev: No Substance use?: No Alcohol Use?: No Immunizations Up To Date Tetanus Booster (TDap): Less than 5yrs PED Vaccines UTD: No Influenza Vaccine Up-to-Date: No; Not Current Seasonal Allergies Seasonal Allergies: No Past Medical History Surgeries: Yes (pilonidal cyst) Section Respiratory: No Currently Using CPAP: No Currently Using BIPAP: No Cardiac: No Neurological: No : Yes Last Menstrual Period: Nov 24, 2021 Reproductive Disorders: No Female Reproductive Disorders: Denies Sexually Transmitted Disease: Yes HIV/AIDS: No Genitourinary: No Gastrointestinal: No Musculoskeletal: No Endocrine: Yes (Vitamin D deficiency) HEENT: No Cancer: No Psychosocial: Yes Anxiety, PTSD, Depression Integumentary: No (pilondial cyst) Blood Disorders: Yes (low iron anemia) Adverse Reaction/Blood Tranf: No Family Medical History FH: hemophilia paternal gm Physical Exam Vital Signs Vital Signs - First Documented 01/13/22 22:00 Temp 36.8 Pulse 99 Resp 24 B/P (MAP) 140/96 (111) Pulse Ox 100 Capillary Refill : Height/Weight/BMI Height: 5'2.00" Weight: 230lbs. 4.0oz. [id number]; 30.00 BMI Method:Stated General Appearance: WD/WN, other (Emotional distress) HEENT: normal ENT inspection Respiratory: lungs clear, normal breath sounds, no respiratory distress Cardiovascular: regular rate, rhythm, no edema, no murmur Gastrointestinal: normal bowel sounds, soft, tenderness (Left adnexa) Extremities: normal inspection, no pedal edema Neurologic/Psychiatric: no motor/sensory deficits, alert, normal mood/affect (Appropriate for circumstance), oriented x 3 Skin: normal color, warm/dry Progress/Results/Core Measures Results/Orders Lab Results Laboratory Tests Test 01/13/22 21:43 01/13/22 22:29 01/13/22 22:40 Range/Units Lab Scanned Report LAB Reports [id number] Urine Color YELLOW Urine Clarity SL CLOUDY Urine pH 5.5 5-9 Urine Specific [place] >=1.030 1.016-1.022 Urine Protein NEGATIVE NEGATIVE Urine Glucose (UA) NEGATIVE NEGATIVE Urine Ketones NEGATIVE NEGATIVE Urine Nitrite NEGATIVE NEGATIVE Urine Bilirubin NEGATIVE NEGATIVE Urine Urobilinogen 0.2 < = 1.0 MG/DL Urine Leukocyte Esterase NEGATIVE NEGATIVE Urine RBC (Auto) 3+ H NEGATIVE Urine RBC 2-5 H /HPF Urine WBC 0-2 /HPF Urine Squamous Epithelial Cells 5-10 /HPF Urine Crystals NONE /LPF Urine Bacteria MODERATE H /HPF Urine Casts NONE /LPF Urine Mucus MODERATE H /LPF Urine Culture Indicated YES White Blood Count 10.6 4.3-11.0 10^3/uL Red Blood Count 4.50 3.80-5.11 10^6/uL Hemoglobin 11.8 11.5-16.0 g/dL Hematocrit 37 35-52 % Mean Corpuscular Volume 81 80-99 fL Mean Corpuscular Hemoglobin 26 25-34 pg Mean Corpuscular Hemoglobin Concent 32 32-36 g/dL Red Cell Distribution Width 14.5 10.0-14.5 % Platelet Count 290 130-400 10^3/uL Mean Platelet Volume 9.0 9.0-12.2 fL Immature Granulocyte % (Auto) 0 % Neutrophils (%) (Auto) 65 42-75 % Lymphocytes (%) (Auto) 26 12-44 % Monocytes (%) (Auto) 6 0-12 % Eosinophils (%) (Auto) 2 0-10 % Basophils (%) (Auto) 0 0-10 % Neutrophils # (Auto) 6.9 1.8-7.8 10^3/uL Lymphocytes # (Auto) 2.8 1.0-4.0 10^3/uL Monocytes # (Auto) 0.6 0.0-1.0 10^3/uL Eosinophils # (Auto) 0.3 0.0-0.3 10^3/uL Basophils # (Auto) 0.0 0.0-0.1 10^3/uL Immature Granulocyte # (Auto) 0.0 0.0-0.1 10^3/uL Human Chorionic Gonadotropin, Quant [id number] H <5 MIU/ML Micro Results Microbiology 01/13/22 Urine Culture - Final, Complete Gram Pos Mixed Bacterial Jana My Orders Orders - KRISTIN RANDALL MD Ua Culture If Indicated (01/13/22 22:13) Cbc With Automated Diff (01/13/22 22:25) Hcg,Quantitative (01/13/22 22:25) Ed Iv/Invasive Line Start (01/13/22 22:25) Urine Culture (01/13/22 22:29) Us Ob<14 Wks Sngle W/Transvag (01/14/22 01:05) Vital Signs/I&O 01/13/22 22:00 Temp 36.8 Pulse 99 Resp 24 B/P (MAP) 140/96 (111) Pulse Ox 100 Blood Pressure Mean: 111 Progress Progress Note : Progress Note Ultrasound was obtained to rule out ectopic . There is a live intrauterine gestation with normal heartbeat. No pathologic findings were present. Diagnostic Imaging Diagonstic Imaging: Ultrasound Plain Films/CT/US/NM/MRI: pelvis Comments NAME: CHRISTINA [facility] REC#: [id number] PT STATUS: DEP ER : 1995 PHYSICIAN: KRISTIN RANDALL MD ADMIT DATE: 01/13/22/ER Signed Date of Exam:01/14/22 US OB<14 WKS SNGLE W/TRANSVAG TECHNIQUE: Live rodriges scale and color Doppler ultrasound was performed of the pelvis transabdominally and endovaginally. REASON FOR EXAM: Vaginal bleeding. COMPARISON: None. FINDINGS: A single live intrauterine gestation is present with a CRL of 0.4 cm. This corresponds with an estimated gestational age of 6 weeks 1 days and LUIS MANUEL of 09/08/2022. heart rate is 115 bpm. A yolk sac is visualized. The gestational sac has a normal size and contours with double decidual reaction. No abnormalities are identified. The bilateral ovaries are well visualized and have a normal appearance. The right ovary measures 2.7 x 1.8 x 2.0 cm. The left ovary measures 2.3 x 1.2 x 2.0 cm. No free fluid is visualized within the posterior cul-de-sac. IMPRESSION: 1. Single live intrauterine gestation with EGA of 6 weeks, 1 days and estimated due date of 09/08/2022. These are within range of the clinical dates. Recommend continued follow-up. 2. No adnexal mass or torsion. No free fluid in the pelvis. Agree with overnight report. Dictated by: Dictated on workstation # [id number] Dict: 01/14/22635 Trans: 01/14/22724 [id number] Interpreted by: JAMILAH BARONE DO Electronically signed by: JAMILAH BARONE DO 01/14/22724 Departure Impression Primary Impression: Vaginal bleeding in Additional Impression: Pelvic pain Disposition: 01 HOME, SELF-CARE Condition: Stable Departure-Patient Inst. Decision time for Depature: 01:42 Referrals: [facility] (PCP/Family) Primary Care Physician Patient Instructions: Bleeding in Early ED Add. Discharge Instructions: Drink plenty of water and clear liquids to stay well-hydrated. You may take Tylenol (acetaminophen) up to 1000 mg every 6 hours as needed for pain and cramping. Observe pelvic rest (nothing in the vagina including intercourse) until cleared by Dr. John. Also avoid strenuous activity such as running or heavy lifting until cleared. Return to care if you have worsening symptoms or develop new symptoms such as fever. All discharge instructions reviewed with patient and/or family. Voiced understanding. Work/School Note: Work Release Form Date Seen in the Emergency Department: Jan 13, 2022 Return to Work: Jan 14, 2022 Other Restrictions Listed Below: No strenuous activity such as lifting over 20 lbs, running, etc. Copy Copies To 1: ADRY JOHN MD, JOSHUA T MD Jan 13, 2022 22:31
[2022-01-13 22:33] LABS: BILIRUBIN,URINE NEGATIVE (NEGATIVE); COLOR,URINE YELLOW; GLUCOSE, URINE (UA) NEGATIVE (NEGATIVE); KETONES,URINE NEGATIVE (NEGATIVE); LEUKOCYTE ESTERASE ,URINE NEGATIVE (NEGATIVE); NITRITE,URINE NEGATIVE (NEGATIVE); PH,URINE 5.5 (5-9); PROTEIN,URINE NEGATIVE (NEGATIVE)
[2022-01-13 22:44] LABS: BACTERIA,URINE MODERATE /HPF; CLARITY,URINE SL CLOUDY; WBC,URINE 0-2 /HPF
[2022-01-13 22:48] LABS: BASOPHILS % (AUTO) 0 % (0-10); EOSINOPHILS # (AUTO) 0.3 10^3/uL (0.0-0.3); EOSINOPHILS % (AUTO) 2 % (0-10); HEMATOCRIT 37 % (35-52); HEMOGLOBIN 11.8 g/dL (11.5-16.0); LYMPHOCYTES # (AUTO) 2.8 10^3/uL (1.0-4.0); LYMPHOCYTES % (AUTO) 26 % (12-44); MEAN CORPUSCULAR HEMOGLOBIN 26 pg (25-34); MEAN CORPUSCULAR HGB CONC 32 g/dL (32-36); MEAN CORPUSCULAR VOLUME 81 fL (80-99); MONOCYTES # (AUTO) 0.6 10^3/uL (0.0-1.0); MONOCYTES % (AUTO) 6 % (0-12); NEUTROPHILS # (AUTO) 6.9 10^3/uL (1.8-7.8); NEUTROPHILS % (AUTO) 65 % (42-75); PLATELET COUNT 290 10^3/uL (130-400); WHITE BLOOD COUNT 10.6 10^3/uL (4.3-11.0)
--- NOTE | 2022-01-14 07:10 | Diagnostic Imaging Report ---
TECHNIQUE: Live rodriges scale and color Doppler ultrasound was performed of the pelvis transabdominally and endovaginally. REASON FOR EXAM: Vaginal bleeding. COMPARISON: None. FINDINGS: A single live intrauterine gestation is present with a CRL of 0.4 cm. This corresponds with an estimated gestational age of 6 weeks 1 days and LUIS MANUEL of 09/08/2022. heart rate is 115 bpm. A yolk sac is visualized. The gestational sac has a normal size and contours with double decidual reaction. No abnormalities are identified. The bilateral ovaries are well visualized and have a normal appearance. The right ovary measures 2.7 x 1.8 x 2.0 cm. The left ovary measures 2.3 x 1.2 x 2.0 cm. No free fluid is visualized within the posterior cul-de-sac. IMPRESSION: 1. Single live intrauterine gestation with EGA of 6 weeks, 1 days and estimated due date of 09/08/2022. These are within range of the clinical dates. Recommend continued follow-up. 2. No adnexal mass or torsion. No free fluid in the pelvis. Agree with overnight report. Dictated by: Dictated on workstation # [id number]
== END 2022-01-14 02:00 | disposition home or self-care (01) ==
LOC: EDUNIT# 21:41 → ER 21:43
DX: O20.9 Hemorrhage in early pregnancy, unspecified (principal); O26.891 Other specified pregnancy related conditions, first trimester; R10.2 Pelvic and perineal pain; Z3A.01 Less than 8 weeks gestation of pregnancy; Z91.040 Latex allergy status; Z28.311 Partially vaccinated for COVID-19
CPT/HCPCS: 36415; 76801; 76817; 81000; 84702; 85025; 87088

== ENCOUNTER 2022-06-08 21:51 | Emergency (ER) | payer MEDICAID ==
[~2022-06-08] VITALS: Ht 160 cm; Wt 124.0 kg
--- NOTE | 2022-06-08 22:27 | ED Head Injury ---
General Chief Complaint: Head/Cervical Problems Stated Complaint: HEAD INJURY 27 WKS PREG Nursing Triage Note: PT STATES A BED FRAME LEANING AGAINST THE WALL FELL OVER AND HIT HER IN THE HEAD, DENIES LOC BUT BECAME NAUSOUS AND THREW UP. 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 27 WEEKS Source: patient Exam Limitations: no limitations History of Present Illness Date Seen by Provider: Jun 08, 2022 Time Seen by Provider: 21:55 Initial Comments 26-year-old female that is roughly 27 weeks coming in after she hit the back of her head with the bed frame around 20 minutes prior to arrival. Did not pass out, nauseous, threw up roughly 3 times. Denies any weakness, numbness, vision changes, or any other concerns. Did take her nausea medicine that she has for . Otherwise denies any other acute complaints including does not take any blood thinners. Allergies and Home Medications Allergies Coded Allergies: latex (Verified Allergy, Unknown, 07/05/18) Patient Home Medication List Home Medication List Reviewed: Yes Ferrous Sulfate (Iron) 325 Mg Tablet, 325 MG PO DAILY, (Reported) Entered as Reported by: RONNELL ADAMSON on 09/09/20 1219 Hydrocodone Bit/Acetaminophen (HYDROcodone/APAP 5 MG/325 MG TAB) 1 Tab Tab, 1 TAB PO Q8H PRN for PAIN-MODERATE (5-7) Prescribed by: ALFONZO CAREY on 09/10/20 1122 Review of Systems Review of Systems Constitutional: No fever Eyes: No Symptoms Reported Ears, Nose, Mouth, Throat: no symptoms reported Respiratory: no symptoms reported Cardiovascular: no symptoms reported Gastrointestinal: no symptoms reported Genitourinary: see HPI Expected Date of Delivery: Sep 08, 2022 Musculoskeletal: no symptoms reported Skin: no symptoms reported Psychiatric/Neurological: See HPI Endocrine: No Symptoms Reported All Other Systems Reviewed Negative Unless Noted: Yes Past Zdwfyix-Ecozeo-Gkrjav Hx Patient Social History Tobacco Use?: No Substance use?: No Alcohol Use?: No Immunizations Up To Date Tetanus Booster (TDap): Less than 5yrs PED Vaccines UTD: No Second COVID19 Vaccination Max: YES Seasonal Allergies Seasonal Allergies: No Past Medical History Surgery/Hospitalization HX: C SECTION, CYST REMOVAL Surgeries: Yes (pilonidal cyst) Section Respiratory: No Currently Using CPAP: No Currently Using BIPAP: No Cardiac: No Neurological: No Expected Date of Delivery: Sep 08, 2022 Last Menstrual Period: Nov 24, 2021 Reproductive Disorders: No Female Reproductive Disorders: Denies Sexually Transmitted Disease: Yes HIV/AIDS: No Genitourinary: No Gastrointestinal: No Musculoskeletal: No Endocrine: Yes (Vitamin D deficiency) HEENT: No Cancer: No Psychosocial: Yes Anxiety, PTSD, Depression Integumentary: No (pilondial cyst) Blood Disorders: Yes (low iron anemia) Adverse Reaction/Blood Tranf: No Family Medical History FH: hemophilia paternal gm Physical Exam Vital Signs Vital Signs - First Documented 06/08/22 21:58 Temp 36.7 Pulse 87 Resp 18 B/P (MAP) 104/72 (83) Pulse Ox 98 O2 Delivery Room Air Capillary Refill : Less Than 3 Seconds Height, Weight, BMI Height: 5'2.00" Weight: 230lbs. 4.0oz. [id number]; 48.00 BMI Method:Stated General Appearance: WD/WN, no apparent distress HEENT: PERRL/EOMI, normal ENT inspection, pharynx normal Neck: non-tender, full range of motion, supple, normal inspection Cardiovascular: regular rate, rhythm, no edema, no murmur Respiratory: chest non-tender, lungs clear, normal breath sounds, no respiratory distress, no accessory muscle use Gastrointestinal: normal bowel sounds, non tender, soft; No distended, No guarding, No rebound Back: normal inspection, no CVA tenderness, no vertebral tenderness Extremities: normal range of motion, non-tender, normal inspection, no pedal edema, no calf tenderness, normal capillary refill Psychiatric: alert, oriented x 3 Crainal Nerves: normal hearing, normal speech, PERRL Coordination/Gait: normal finger to nose, normal gait Motor/Sensory: no motor deficit, no sensory deficit, no pronator drift Skin: normal color, warm/dry Citlali Coma Score Best Eye Response: (4) Open Spontaneously Best Verbal Response: (5) Oriented Best Motor Response: (6) Obeys Commands Progress/Results/Core Measures Results/Orders Vital Signs/I&O 06/08/22 21:58 Temp 36.7 Pulse 87 Resp 18 B/P (MAP) 104/72 (83) Pulse Ox 98 O2 Delivery Room Air Blood Pressure Mean: 83 Progress Progress Note : Progress Note 26-year-old female with above history coming in after she struck her head. ABCs were intact, GCS 15, vital stable on presentation. I discussed with the patient that she has a lot of low risk findings, but the vomiting is slightly more risky. I discussed getting a CT imaging of her head versus monitoring her. Given her , the patient is wanting to just monitor herself in the ER. I frequently reassessed her, neuro exam did not change. I believe she is otherwise stable for discharge with outpatient follow-up. She was sent home with strict return precautions Departure Impression Primary Impression: Concussion without loss of consciousness Qualified Codes: S06.0X0A - Concussion without loss of consciousness, initial encounter Disposition: HOME, SELF-CARE Condition: Stable Departure-Patient Inst. Decision time for Depature: 00:00 Referrals: [facility] [place] (PCP/Family) Primary Care Physician Patient Instructions: Concussion, Adult ED Add. Discharge Instructions: You do have a concussion. Concerns include headache, nausea, vomiting, difficulty focusing, increased sleepiness, sometimes difficulty sleeping, among other symptoms. Take Tylenol and drink plenty of fluids as needed. Take your nausea medicine as needed. Follow-up with your regular doctor if you are not improving within the next couple of weeks. If you have any significant concerns, then please come back to the ER. Work/School Note: Family Work Note, Patient Received Medical Care In the Emergency Department On: Jun 08, 2022 Patient Will Be Able to Return to Work/School On: Jun 10, 2022 Work Release Form Date Seen in the Emergency Department: Jun 08, 2022 Return to Work: Jun 10, 2022 Restrictions: No Restrictions DARLENE ALATORRE MD Jun 08, 2022 22:26
[2022-06-08 23:41] VITALS: BP 110/73
== END 2022-06-08 23:38 | disposition home or self-care (01) ==
LOC: EDUNIT# 21:51 → ER 21:54
DX: O9A.212 Injury, poisoning and certain other consequences of external causes complicating pregnancy, second trimester (principal); S06.0X0A Concussion without loss of consciousness, initial encounter; Z3A.27 27 weeks gestation of pregnancy; Z91.040 Latex allergy status; W22.8XXA Striking against or struck by other objects, initial encounter
CPT/HCPCS: 99281

== ENCOUNTER 2022-07-24 20:12 | Outpatient (CLI) | payer MEDICAID ==
[~2022-07-24] VITALS: Ht 160 cm; Wt 128.3 kg
[2022-07-24] MEDS ORDERED: PREN-142 PO (20:24)
[2022-07-24 20:47] VITALS: BP 116/71
[2022-07-24 20:52] LABS: BILIRUBIN,URINE NEGATIVE (NEGATIVE); CLARITY,URINE SL CLOUDY; COLOR,URINE YELLOW; GLUCOSE, URINE (UA) NEGATIVE (NEGATIVE); KETONES,URINE 2+ (NEGATIVE); LEUKOCYTE ESTERASE ,URINE NEGATIVE (NEGATIVE); NITRITE,URINE NEGATIVE (NEGATIVE); PROTEIN,URINE 1+ (NEGATIVE)
[2022-07-24 21:01] LABS: BACTERIA,URINE FEW /HPF; WBC,URINE 0-2 /HPF
[2022-07-24] MEDS ORDERED: hydrOXYzine (VISTARIL/ATARAX) 25 MG capsule/tablet ONE (21:30)
[2022-07-24] MEDS ORDERED: hydrOXYzine (VISTARIL/ATARAX) 25 MG capsule/tablet PO ONE (21:30)
--- NOTE | 2022-07-26 08:18 | Physician Query-Final Dx ---
Clinic Account Progress/Dx Physician Query: Please give diagnosis Please include # weeks gestation Date of Service July 24, 2022 at 20:12 ,MarJuly 26, 2022 08:18
== END 2022-07-24 21:40 | disposition home or self-care (01) ==
LOC: WSo 20:12 → LDRP 20:13 → WSo 21:40
PROVIDERS: ATTEND Family Medicine
DX: O62.9 Abnormality of forces of labor, unspecified (principal); Z3A.33 33 weeks gestation of pregnancy
CPT/HCPCS: 81000; 87088; 99213

== ENCOUNTER 2022-08-20 00:30 | Outpatient (CLI) | payer MEDICAID ==
[~2022-08-20] VITALS: Ht 160 cm; Wt 127.8 kg
[~2022-08-20 00:30] MED LIST changes: +PREN-142 PO
[2022-08-20 00:47] VITALS: BP 122/72
[2022-08-20 01:08] LABS: BILIRUBIN,URINE NEGATIVE (NEGATIVE); CLARITY,URINE SL CLOUDY; COLOR,URINE YELLOW; GLUCOSE, URINE (UA) NEGATIVE (NEGATIVE); KETONES,URINE TRACE (NEGATIVE); LEUKOCYTE ESTERASE ,URINE NEGATIVE (NEGATIVE); NITRITE,URINE NEGATIVE (NEGATIVE); PROTEIN,URINE 2+ (NEGATIVE)
[2022-08-20 01:21] LABS: BACTERIA,URINE LARGE /HPF; RBC,URINE 0-2 /HPF; SQUAMOUS EPITHELIAL CELL,UR 25-50 /HPF
--- NOTE | 2022-08-20 01:57 | OB Triage Report ---
Standard Progress Note Progress Notes/Assess & Plan Date Seen by a Provider: Aug 20, 2022 Time Seen by a Provider: 01:50 Expected Date of Delivery: Sep 08, 2022 Gestational Age in Weeks: 37 Gestational Age in Days: 2 LMP/LUIS MANUEL Comment: IUP @37w2d Progress/Assessment & Plan This 26yo presents to L&D @ 37w2d with c/o n/v since 2199 She also c/o back pain, cramping and LOF VSS AF FHR 130 Reactive CVX 1cm per RN ROM test and Nitrazine neg TOCOs irregular Labs reviewed Patient asking for Water Diagnosis/Problems Diagnosis/Problems (1) 37 or more completed weeks of gestation Assessment & Plan: IUP @ 37w2d (2) Nausea and vomiting during Assessment & Plan: n/v resolved increase po hydration (3) Vaginal discharge during Assessment & Plan: neg for SROM Qualifiers: Qualified Codes: O26.893 - Other specified related conditions, third trimester; N89.8 - Other specified noninflammatory disorders of vagina MAXINE AHUMADA DO Aug 20, 2022 01:57
[2022-08-20 02:18] VITALS: BP 108/68
== END 2022-08-20 02:26 | disposition home or self-care (01) ==
LOC: WSo 00:30 → LDRP 00:31 → WSo 02:26
PROVIDERS: ATTEND Obstetrics & Gynecology
DX: O62.9 Abnormality of forces of labor, unspecified (principal); O26.893 Other specified pregnancy related conditions, third trimester; R10.9 Unspecified abdominal pain; Z3A.37 37 weeks gestation of pregnancy
CPT/HCPCS: 81000; 84112; G0463; 99213

== ENCOUNTER 2022-08-25 05:43 | Outpatient (CLI) | payer MEDICAID ==
[~2022-08-25] VITALS: Ht 162.6 cm; Wt 130.5 kg
[2022-08-25] MEDS ORDERED: MULT-1018 PO (12:51)
[2022-08-25] MEDS ORDERED: CRAN1CAP3 PO (12:51)
[2022-08-25] MEDS ORDERED: OMEG-35 PO (12:51)
[2022-08-25] MEDS ORDERED: FAMO20TA3 PO (12:51)
== END 2022-08-25 13:31 | disposition home or self-care (01) ==
LOC: PREOP 05:43
PROVIDERS: ATTEND Obstetrics & Gynecology
DX: Z01.818 Encounter for other preprocedural examination (principal)

== ENCOUNTER 2022-09-01 05:31 | Inpatient (IN) | payer MEDICAID ==
[2022-09-01] VITALS (8 sets, daily range): BP systolic 101–126; BP diastolic 59–81
[~2022-09-01] VITALS: Ht 160 cm; Wt 131.5 kg
[~2022-09-01 05:31] MED LIST changes: +CRAN1CAP3 PO; +FAMO20TA3 PO; +MULT-1018 PO; +OMEG-35 PO
--- OUTSIDE RECORDS SUMMARY | 2022-09-01 05:35 | XMS REPORT ---
Author Author [facility] Address Unknown Phone Unavailable Care Team Providers Care Farmer Diversified Crops Name Role Phone ADRIAN Rivera Unavailable PROBLEMS Type Condition ICD9-CM Code CQS22-FW Code Onset Dates Condition S tatus W/U Status Risk SNOMED Code Notes Problem Recurrent major depressive disorder, in partial remission F33.41 confirmed 83513503 Problem Seasonal allergic rhinitis, unspecified trigger J30.2 confirmed 193146252 Problem Dietary lactose intolerance E73.9 confirmed 290351140 Problem Obesity affecting in third trimester O99.213 confirmed 272561686744 Problem Complex posttraumatic stress disorder F43.10 confirmed 245035541 Problem Gestational diabetes mellitus (GDM) affecting pr egnancy, antepartum O24.419 confirmed [id number] Problem care in third trimester Z34.93 conf irmed [id number] Problem Morbid (severe) obesity due to excess calories E66.01 confirmed 274195452 Problem Iron deficiency anemia, unspecified iron deficiency an emia type D50.9 confirmed 44538546 Problem Mild episode of recurrent major depressive disorder F33.0 confirmed 461224409 Problem Amenorrhea N91.2 confirmed 75360061 ALLERGIES Allergen (clinical drug ingredient) Drug/Non Drug Allergy do cumented on EMR Reaction Allergy Type Onset Date Status Latex/Latex Containing Products hives Non Drug Allerg y Active ENCOUNTERS from 1995 to 2022-08-29 Encounter Location Date Provider Diagnosis [facility] [address] [facility] [id number] [address] [place] [address] Aug, ADRIAN Rivera Complex posttraumati c stress disorder F43.10 IMMUNIZATIONS Vaccine Route Administration Date Status PRIVATE HEP B (PEDS/ADOLESCENT, 3-DOSE) Unknown 1995 Administered PRIVATE HEP B (PEDS/ADOLESCENT, 3-DOSE) Unknown 1995 Administered DTP Unknown Feb 13, 1997 Administered DTP Unknown Nov 13, 1996 Administered Hib 4 dose schedule Unknown Jan 14, 1996 Administered PRIVATE HEP B (PEDS/ADOLESCENT, 3-DOSE) Unknown May 16, 1996 Administered PRIVATE HEP B (PEDS/ADOLESCENT, 3-DOSE) Unknown Mar 15, 1996 Administered PRIVATE HEP B (PEDS/ADOLESCENT, 3-DOSE) Unknown Jan 14, 1996 Administered COVID-19, RADHA, 0.5mL Unknown September 26, 2020 Adminis tered DTP Unknown Mar 15, 1996 Administered DTP Unknown Jan 14, 1996 Administered OPV Unknown Jan 14, 1996 Administered OPV Unknown Jan 26, 1996 Administered OPV Unknown Mar 15, 1996 Administered OPV Unknown Nov 13, 1996 Administered PRIVATE TDAP (ADACEL) Unknown Oct 23, 2008 Administer ed PRIVATE TDAP (ADACEL) Unknown Dec 16, 2015 Administer ed DTP-Hib Unknown Jan 26, 1996 Administered PRIVATE MENINGOCOCCAL (MENACTRA) Unknown Oct 23, 2008 Administered PRIVATE DTAP (INFANRIX) Unknown May 19, 2000 Administ ered PRIVATE VARICELLA Unknown Nov 11, 1998 Administered PRIVATE FLULAVAL QUAD 0.5ML (6 MO AND UP) 2019 IM Intramuscular Dec 22, 2017 Administered PRIVATE MMR Unknown May 19, 2000 Administered PRIVATE TDAP (BOOSTRIX) IM Intramuscular May 09, 2018 Adminis tered PRIVATE MMR Unknown Nov 13, 1996 Administered Hib 4 dose schedule Unknown May 19, 2000 Administered PRIVATE DTAP (INFANRIX) Unknown August 06, 1997 Administ ered PRIVATE HEP A (PEDS/ADOLESCENT-2 DOSE) Unknown Nov 15 003 Administered 1st Booster MODERNA Bivalent, COVID-19, 0.5mL IM Intramuscular J an 2022 Administered PRIVATE HEP A (PEDS/ADOLESCENT-2 DOSE) Unknown July 28 000 Administered VFC FLU 22-23 (FLULAVAL) AGE 6MO & UP IM Intramuscular Mar 29 023 Administered PRIVATE POLIO (IPV) Unknown May 19, 2000 Administered STATE FUNDED FLULUVAL QUAD 0.5ML 6 MONTHS AND UP 2019 IM Int ramuscular Apr 19, 2019 Administered Hib 4 dose schedule Unknown August 06, 1997 Administered Hib 4 dose schedule Unknown Nov 13, 1996 Administered Hib 4 dose schedule Unknown Mar 15, 1996 Administered SOCIAL HISTORY Sex Assigned At : Social History Observation Description Sex Assigned At Unknown Alcohol Screen (Audit-C) Question Answer Notes Did you have a drink containing alcohol in the past year? No Points 0 Interpretation Negative Sexual History Question Answer Notes Had sex in the past 12 months (vaginal, oral, or anal)? Yes Last menstrual period depo Have you ever had a Sexually transmitted disease? Yes Chlamydia? Yes PHQ2 Question Answer Notes In the last 2 weeks, how often have you had little interest or pleasure in doing things? Not at all In the last 2 weeks, how often have you been feeling down, depressed, or hopeless? Not at all Total PHQ2 Score 0 Tobacco use other than smoking: Question Answer Notes Are you an other tobacco user? No REASON FOR REFERRAL No Information VITAL SIGNS No information MEDICATIONS Medication SIG (Take, Route, Frequency, Duration) Notes Start Da te End Date Status Ferrous Sulfate 325 (65 Fe) MG 1 tablet Orally Once a day Active Active Blood Glucose Test - as directed In Vitro 4 times a day for 30 d ays Expression July, Active OneTouch Delica Plus [id number] - USE ONE LANCET FOUR (4) TIMES FIDEL Y for 25 Active Cranberry 425 MG as directed Orally Active Glucocard Expression Monitor w/Device as directed July, Active Famotidine 20 MG 1 tablet at bedtime as needed Orally Once a day for 30 days May, Active Fish Oil 1000 MG 1 capsule Orally Once a day Active Hair Skin & Nails Gummies 1250-7.5-7.5 MCG-MG-UNT as directed Orally Active PROCEDURES No Information RESULTS No Results REASON FOR VISIT f/u MEDICAL (GENERAL) HISTORY Type Description Date Medical History depression Medical History PTSD Medical History anxiety Medical History Intentional Drug Overdose Trazadone 7-20 15 Medical History History of drug overdose Surgical History cyst removal lower back Hospitalization History overdose 2015 Hospitalization History vaginal childbirth 12/31/2015, 06/19 Goals Section No Information Health Concerns No Information MEDICAL EQUIPMENT No Information MENTAL STATUS No Information FUNCTIONAL STATUS No Information ASSESSMENTS Encounter Date Diagnosis Assessment Notes Treatment Notes Treatm ent Clinical Notes Aug, Complex posttraumatic stress disorder (I CD-10 - F43.10) PLAN OF TREATMENT Next Appt Details 1-2 Weeks Reason: Follow Up Follow Up:1-2 WeeksBH Follow Up Insurance Providers Payer Name Payer Address Payer Phone Insured Name Patient Relati onship to Insured Coverage Start Date Coverage End Date Subscriber Number Group Nu mber [facility] [address] [facility] [address] Haven Valdse Self - patient is the insured [id number] MEDICATIONS ADMINISTERED Medication Instructions Date of Administration Dosage DEPO PROVERA (150 MG/ML) July, 150 mg DEPO PROVERA (150 MG/ML) Jan, 150 mg DEPO PROVERA (150 MG/ML) Feb, 150 mg MEDRXYPROGESTERONE ACETATE Aug, 150 m g DEPO PROVERA (150 MG/ML) Nov, 150 mg DEPO PROVERA (150 MG/ML) May, 150 mg Depo-Provera May, 150 mg DEPO PROVERA (150 MG/ML) July, 150 mg DEPO PROVERA (150 MG/ML) Apr, 150 mg DEPO PROVERA (150 MG/ML) Oct, 150 mg MEDRXYPROGESTERONE ACETATE Feb,
--- OUTSIDE RECORDS SUMMARY | 2022-09-01 05:35 | XMS REPORT ---
Author Author [facility] Address Unknown Phone Unavailable Care Team Providers Care Spring Crater Name Role Phone JESS MISTRY Unavailable PROBLEMS Type Condition ICD9-CM Code [id number] Code Onset Dates Condition S tatus W/U Status Risk SNOMED Code Notes Problem Recurrent major depressive disorder, in partial remission F33.41 confirmed 83316827 Problem Seasonal allergic rhinitis, unspecified trigger J30.2 confirmed 462918481 Problem Dietary lactose intolerance E73.9 confirmed 497087732 Problem Obesity affecting in third trimester O99.213 confirmed 352105998098 Problem Complex posttraumatic stress disorder F43.10 confirmed 388371676 Problem Gestational diabetes mellitus (GDM) affecting pr egnancy, antepartum O24.419 confirmed 00156046921486 Problem Morbid (severe) obesity due to excess calories E66.01 confirmed 000186502 Problem Iron deficiency anemia, unspecified iron deficiency an emia type D50.9 confirmed 21311633 Problem Mild episode of recurrent major depressive disorder F33.0 confirmed 194800470 Problem Amenorrhea N91.2 confirmed 98622391 ALLERGIES Allergen (clinical drug ingredient) Drug/Non Drug Allergy do cumented on EMR Reaction Allergy Type Onset Date Status Latex/Latex Containing Products hives Non Drug Allerg y Active ENCOUNTERS from 1995 to 2022-08-14 Encounter Location Date Provider Diagnosis [facility] [address] [id number] [address] [place] [address] Aug, JESS MISTRY IMMUNIZATIONS Vaccine Route Administration Date Status OPV Unknown Jan 26, 1996 Administered OPV Unknown Mar 15, 1996 Administered OPV Unknown Nov 13, 1996 Administered PRIVATE TDAP (ADACEL) Unknown Oct 23, 2008 Administer ed PRIVATE POLIO (IPV) Unknown May 19, 2000 Administered PRIVATE HEP A (PEDS/ADOLESCENT-2 DOSE) Unknown July 28, 000 Administered PRIVATE HEP A (PEDS/ADOLESCENT-2 DOSE) Unknown Nov 15 003 Administered OPV Unknown Jan 14, 1996 Administered PRIVATE DTAP (INFANRIX) Unknown August 06, 1997 Administ ered PRIVATE TDAP (ADACEL) Unknown Dec 16, 2015 Administer ed DTP-Hib Unknown Jan 26, 1996 Administered PRIVATE HEP B (PEDS/ADOLESCENT, 3-DOSE) Unknown Jan 14, 1996 Administered PRIVATE HEP B (PEDS/ADOLESCENT, 3-DOSE) Unknown 1995 Administered PRIVATE HEP B (PEDS/ADOLESCENT, 3-DOSE) Unknown 1995 Administered DTP Unknown Feb 13, 1997 Administered DTP Unknown Nov 13, 1996 Administered DTP Unknown Mar 15, 1996 Administered DTP Unknown Jan 14, 1996 Administered PRIVATE DTAP (INFANRIX) Unknown May 19, 2000 Administ ered PRIVATE MENINGOCOCCAL (MENACTRA) Unknown Oct 23, 2008 Administered Hib 4 dose schedule Unknown Mar 15, 1996 Administered PRIVATE FLULAVAL QUAD 0.5ML (6 MO AND UP) 2019 IM Intramuscular Dec 22, 2017 Administered Hib 4 dose schedule Unknown Nov 13, 1996 Administered PRIVATE TDAP (BOOSTRIX) IM Intramuscular May 09, 2018 Adminis tered Hib 4 dose schedule Unknown August 06, 1997 Administered Hib 4 dose schedule Unknown May 19, 2000 Administered COVID-19, RADHA, 0.5mL Unknown September 26, 2020 Adminis tered PRIVATE HEP B (PEDS/ADOLESCENT, 3-DOSE) Unknown Mar 15, 1996 Administered 1st Booster MODERNA Bivalent, COVID-19, 0.5mL IM Intramuscular J an 2022 Administered PRIVATE HEP B (PEDS/ADOLESCENT, 3-DOSE) Unknown May 16, 1996 Administered VFC FLU 22-23 (FLULAVAL) AGE 6MO & UP IM Intramuscular Mar 29 023 Administered Hib 4 dose schedule Unknown Jan 14, 1996 Administered STATE FUNDED FLULUVAL QUAD 0.5ML 6 MONTHS AND UP 2019 IM Int ramuscular Apr 19, 2019 Administered PRIVATE MMR Unknown Nov 13, 1996 Administered PRIVATE MMR Unknown May 19, 2000 Administered PRIVATE VARICELLA Unknown Nov 11, 1998 Administered SOCIAL HISTORY Sex Assigned At : [...] Notes Start Da te End Date Status Glucocard Expression Monitor w/Device as directed July, Active Blood Glucose Test - as directed In Vitro 4 times a day for 30 d ays Expression July, Active Ferrous Sulfate 325 (65 Fe) MG 1 tablet Orally Once a day Active Famotidine 20 MG 1 tablet at bedtime as needed Orally Once a day for 30 days May, Active Active Fish Oil 1000 MG 1 capsule Orally Once a day Active PROCEDURES No Information RESULTS No Results REASON FOR VISIT Wound Packing MEDICAL (GENERAL) HISTORY Type Description Date Medical History depression Medical History PTSD Medical History anxiety Medical History Intentional Drug Overdose Trazadone 7-20 15 Medical History History of drug overdose Surgical History cyst removal lower back Hospitalization History overdose 2014 Hospitalization History vaginal childbirth 12/31/2015, 06/19 Goals Section No Information Health Concerns No Information MEDICAL EQUIPMENT No Information MENTAL STATUS No Information FUNCTIONAL STATUS No Information ASSESSMENTS No Information PLAN OF TREATMENT Next Appt Details Provider Name:ROSETTA MCCONNELL, 11:20:00 AM, [address] [place], [address], Provider Name:ADRY JOHN, 2022-08-24 02 :00:00 PM, [address] [place], [address], Insurance Providers Payer Name Payer Address Payer Phone Insured Name Patient Relati onship to Insured Coverage Start Date Coverage End Date Subscriber Number Group Nu mber MADHU [address] [facility] [address] [phone] KeishaHaven Francine Self - patient is the insured [id number] MEDICATIONS ADMINISTERED Medication Instructions Date of Administration Dosage DEPO PROVERA (150 MG/ML) Nov, 150 mg DEPO PROVERA (150 MG/ML) July, 150 mg DEPO PROVERA (150 MG/ML) May, 150 mg DEPO PROVERA (150 MG/ML) July, 150 mg DEPO PROVERA (150 MG/ML) Oct, 150 mg DEPO PROVERA (150 MG/ML) Apr, 150 mg DEPO PROVERA (150 MG/ML) Feb, 150 mg DEPO PROVERA (150 MG/ML) Jan, 150 mg Depo-Provera May, 150 mg MEDRXYPROGESTERONE ACETATE 05 Aug, 2016 150 m g MEDRXYPROGESTERONE ACETATE 14 Feb, 2016
--- OUTSIDE RECORDS SUMMARY | 2022-09-01 05:35 | XMS REPORT ---
Author Author [facility] Address Unknown Phone Unavailable Care Team Providers Care Dinkey Engine Mechanic Name Role Phone ADRIAN DESAI Unavailable PROBLEMS Type Condition ICD9-CM Code [id number] Code Onset Dates Condition S tatus W/U Status Risk SNOMED Code Notes Problem Complex posttraumatic stress disorder F43.10 confirmed 148115343 Problem Recurrent major depressive disorder, in partial remission F33.41 confirmed 11559024 Problem Seasonal allergic rhinitis, unspecified trigger J30.2 confirmed 755857371 Problem Amenorrhea N91.2 confirmed 46494162 Problem Obesity affecting in third trimester O99.213 confirmed 797193356710 Problem Dietary lactose intolerance E73.9 confirmed 092856824 Problem Morbid (severe) obesity due to excess calories E66.01 confirmed 622642905 Problem Iron deficiency anemia, unspecified iron deficiency an emia type D50.9 confirmed 29223105 Problem Mild episode of recurrent major depressive disorder F33.0 confirmed 074152173 ALLERGIES Allergen (clinical drug ingredient) Drug/Non Drug Allergy do cumented on EMR Reaction Allergy Type Onset Date Status Latex/Latex Containing Products hives Non Drug Allerg y Active ENCOUNTERS from 1995 to 2022-07-14 Encounter Location Date Provider Diagnosis [facility] [address] [facility] [id number] [address] [place] [address] 11 May, 2020 ADRIAN DESAI Complex posttraumati c stress disorder F43.10 IMMUNIZATIONS Vaccine Route Administration Date Status OPV [...] dose schedule Unknown Mar 15, 1996 Administered VFC FLU 22-23 (FLULAVAL) AGE 6MO & UP IM Intramuscular Mar 29 023 Administered Hib 4 dose schedule Unknown Nov 13, 1996 Administered 1st Booster MODERNA Bivalent, COVID-19, 0.5mL IM Intramuscular J 2022 Administered Hib 4 dose schedule Unknown August 06, 1997 Administered Hib 4 dose schedule Unknown May 19, 2000 Administered PRIVATE TDAP (BOOSTRIX) IM Intramuscular May 09, 2018 Adminis tered PRIVATE HEP B (PEDS/ADOLESCENT, 3-DOSE) Unknown Mar 15, 1996 Administered PRIVATE FLULAVAL QUAD 0.5ML (6 MO AND UP) 2019 IM Intramuscular Dec 22, 2017 Administered PRIVATE HEP B (PEDS/ADOLESCENT, 3-DOSE) Unknown May 16, 1996 Administered STATE FUNDED FLULUVAL QUAD 0.5ML 6 MONTHS AND UP 2019 IM Int ramuscular Apr 19, 2019 Administered Hib 4 dose schedule Unknown Jan 14, 1996 Administered COVID-19, RADHA, 0.5mL Unknown September 26, 2020 Adminis tered PRIVATE MMR Unknown Nov 13, [...] Notes Start Da te End Date Status Fish Oil 1000 MG 1 capsule Orally Once a day Active Ferrous Sulfate 325 (65 Fe) MG 1 tablet Orally Once a day Active Active Famotidine 20 MG 1 tablet at bedtime as needed Orally Once a day for 30 days May, Active PROCEDURES No Information RESULTS No Results REASON FOR VISIT f/u MEDICAL (GENERAL) HISTORY Type Description Date Medical History depression Medical History PTSD Medical History anxiety Medical History Intentional Drug Overdose Trazadone 10-07 Medical History History of drug overdose Surgical History cyst removal lower back Hospitalization History overdose 2014 Hospitalization History vaginal childbirth 12/31/2015, 06/19 Goals Section No Information Health Concerns No Information MEDICAL EQUIPMENT No Information MENTAL STATUS No Information FUNCTIONAL STATUS No Information ASSESSMENTS Encounter Date Diagnosis Assessment Notes Treatment Notes Treatm ent Clinical Notes May, Complex posttraumatic stress disorder (I CD-10 - F43.10) PLAN OF TREATMENT Next Appt Details 1-2 Weeks Reason: Follow Up Provider Name:ADRY JOHN, 2022-07-22 02 :20:00 PM, [address] [place], [address], Follow Up:1-2 WeeksBH Follow Up Insurance Providers Payer Name Payer Address Payer Phone Insured Name Patient Relati onship to Insured Coverage Start Date Coverage End Date Subscriber Number Group Nu mber [facility] [address] [facility] [address] Haven Valdes Self - patient is the insured [id number] MEDICATIONS ADMINISTERED Medication Instructions Date of Administration Dosage DEPO PROVERA (150 MG/ML) Feb, 150 mg Depo-Provera May, 150 mg DEPO PROVERA (150 MG/ML) May, 150 mg DEPO PROVERA (150 MG/ML) July, 150 mg DEPO PROVERA (150 MG/ML) Oct, 150 mg DEPO PROVERA (150 MG/ML) Jan, 150 mg DEPO PROVERA (150 MG/ML) Apr, 150 mg DEPO PROVERA (150 MG/ML) July, 150 mg DEPO PROVERA (150 MG/ML) Nov, 150 mg MEDRXYPROGESTERONE ACETATE 05 Aug, 2016 150 m g MEDRXYPROGESTERONE ACETATE 14 Feb, 2016
--- OUTSIDE RECORDS SUMMARY | 2022-09-01 05:35 | XMS REPORT ---
Author Author [facility] Address Unknown Phone Unavailable Care Team Providers Care Chemical Operator Name Role Phone ADRIAN Rivera Unavailable PROBLEMS Type Condition ICD9-CM Code [id number] Code Onset Dates Condition S tatus W/U Status Risk SNOMED Code Notes Problem Recurrent major depressive disorder, in partial remission F33.41 confirmed 54730352 Problem Seasonal allergic rhinitis, unspecified trigger J30.2 confirmed 580497520 Problem Dietary lactose intolerance E73.9 confirmed 447577284 Problem Obesity affecting in third trimester O99.213 confirmed 652530601974 Problem Complex posttraumatic stress disorder F43.10 confirmed 146267694 Problem Gestational diabetes mellitus (GDM) affecting pr egnancy, antepartum O24.419 confirmed 61061811537352 Problem care in third trimester Z34.93 conf irmed 669947673 Problem Morbid (severe) obesity due to excess calories E66.01 confirmed 511257945 Problem Iron deficiency anemia, unspecified iron deficiency an emia type D50.9 confirmed 87613373 Problem Mild episode of recurrent major depressive disorder F33.0 confirmed 800299172 Problem Amenorrhea N91.2 confirmed 22787394 ALLERGIES Allergen (clinical drug ingredient) Drug/Non Drug Allergy do cumented on EMR Reaction Allergy Type Onset Date Status Latex/Latex Containing Products hives Non Drug Allerg y Active ENCOUNTERS from 1995 to 2022-08-24 Encounter Location Date Provider Diagnosis [facility] [address] [facility] [id number] [address] [place] [address] July, ADRIAN Rivera Complex posttraumati c stress disorder F43.10 IMMUNIZATIONS Vaccine Route Administration Date Status PRIVATE HEP B (PEDS/ADOLESCENT, 3-DOSE) Unknown May 16, 1996 Administered PRIVATE HEP B (PEDS/ADOLESCENT, 3-DOSE) Unknown Mar 15, 1996 Administered DTP Unknown Feb 13, 1997 Administered DTP Unknown Nov 13, 1996 Administered PRIVATE MMR Unknown Nov 13, 1996 Administered Hib 4 dose schedule Unknown August 06, 1997 Administered Hib 4 dose schedule Unknown Nov 13, 1996 Administered Hib 4 dose schedule Unknown Mar 15, 1996 Administered PRIVATE DTAP (INFANRIX) Unknown May 19, 2000 Administ ered DTP Unknown Mar 15, 1996 Administered PRIVATE DTAP (INFANRIX) Unknown August 06, 1997 Administ ered PRIVATE TDAP (BOOSTRIX) IM Intramuscular May 09, 2018 Adminis tered PRIVATE MENINGOCOCCAL (MENACTRA) Unknown Oct 23, 2008 Administered PRIVATE TDAP (ADACEL) Unknown Dec 16, 2015 Administer ed PRIVATE TDAP (ADACEL) Unknown Oct 23, 2008 Administer ed PRIVATE HEP A (PEDS/ADOLESCENT-2 DOSE) Unknown Nov 15 003 Administered PRIVATE POLIO (IPV) Unknown May 19, 2000 Administered PRIVATE MMR Unknown May 19, 2000 Administered Hib 4 dose schedule Unknown May 19, 2000 Administered COVID-19, RADHA, 0.5mL Unknown September 26, 2020 Adminis tered VFC FLU 22-23 (FLULAVAL) AGE 6MO & UP IM Intramuscular Mar 29 023 Administered PRIVATE HEP B (PEDS/ADOLESCENT, 3-DOSE) Unknown 1995 Administered DTP-Hib Unknown Jan 26, 1996 Administered DTP Unknown Jan 14, 1996 Administered OPV Unknown Nov 13, 1996 Administered OPV Unknown Mar 15, 1996 Administered OPV Unknown Jan 14, 1996 Administered PRIVATE FLULAVAL QUAD 0.5ML (6 MO AND UP) 2018 IM Intramuscular Dec 22, 2017 Administered Hib 4 dose schedule Unknown Jan 14, 1996 Administered STATE FUNDED FLULUVAL QUAD 0.5ML 6 MONTHS AND UP 2018 IM Int ramuscular Apr 19, 2019 Administered PRIVATE HEP B (PEDS/ADOLESCENT, 3-DOSE) Unknown Jan 14, 1996 Administered 1st Booster MODERNA Bivalent, COVID-19, 0.5mL IM Intramuscular J 2022 Administered PRIVATE HEP B (PEDS/ADOLESCENT, 3-DOSE) Unknown 1995 Administered OPV Unknown Jan 26, 1996 Administered PRIVATE HEP A (PEDS/ADOLESCENT-2 DOSE) Unknown July 28 Administered PRIVATE VARICELLA Unknown Nov 11, 1998 [...] 1 capsule Orally Once a day Active OneTouch Delica Plus Exifsy89N - USE ONE LANCET FOUR (4) TIMES FIDEL Y for 25 Active Glucocard Expression Monitor w/Device as directed July, Active Famotidine 20 MG 1 tablet at bedtime as needed Orally Once a day for 30 days May, Active Ferrous Sulfate 325 (65 Fe) MG 1 tablet Orally Once a day Active Blood Glucose Test - as directed In Vitro 4 times a day for 30 d ays Expression July, Active Active PROCEDURES No Information RESULTS No Results [...] Notes Treatment Notes Treatm ent Clinical Notes July, Complex posttraumatic stress disorder (I CD-10 - F43.10) PLAN OF TREATMENT Next Appt Details 1-2 Weeks Reason: Follow Up Provider Name:ADRY JOHN, 2022-08-24 02 :00:00 PM, [address] [place], [address], Follow Up:1-2 WeeksBH Follow Up Insurance Providers Payer Name Payer Address Payer Phone Insured Name Patient Relati onship to Insured Coverage Start Date Coverage End Date Subscriber Number Group Nu mber [facility] [address] [facility] [address] Haven Valdes Self - patient is the insured [id number] MEDICATIONS ADMINISTERED Medication Instructions Date of Administration Dosage DEPO PROVERA (150 MG/ML) May, 150 mg MEDRXYPROGESTERONE ACETATE Feb, DEPO PROVERA (150 MG/ML) Nov, 150 mg DEPO PROVERA (150 MG/ML) Feb, 150 mg Depo-Provera May, 150 mg DEPO PROVERA (150 MG/ML) Apr, 150 mg DEPO PROVERA (150 MG/ML) Oct, 150 mg DEPO PROVERA (150 MG/ML) July, 150 mg DEPO PROVERA (150 MG/ML) Jan, 150 mg DEPO PROVERA (150 MG/ML) July, 150 mg MEDRXYPROGESTERONE ACETATE Aug, 150 m g
--- OUTSIDE RECORDS SUMMARY | 2022-09-01 05:35 | XMS REPORT ---
Author Author [facility] Address Unknown Phone Unavailable Care Team Providers Care Raise Miner Name Role Phone ADRIAN Rivera Unavailable PROBLEMS Type Condition ICD9-CM Code [id number] Code Onset Dates Condition S tatus W/U Status Risk SNOMED Code Notes Problem Recurrent major depressive disorder, in partial remission F33.41 confirmed 35090538 Problem Seasonal allergic rhinitis, unspecified trigger J30.2 confirmed 290708509 Problem Dietary lactose intolerance E73.9 confirmed 258938327 Problem Obesity affecting in third trimester O99.213 confirmed 464840571275 Problem Complex posttraumatic stress disorder F43.10 confirmed 868793127 Problem Gestational diabetes mellitus (GDM) affecting pr egnancy, antepartum O24.419 confirmed [id number] Problem Morbid (severe) obesity due to excess calories E66.01 confirmed 406873674 Problem Iron deficiency anemia, unspecified iron deficiency an emia type D50.9 confirmed 86937662 Problem Mild episode of recurrent major depressive disorder F33.0 confirmed 461889866 Problem Amenorrhea N91.2 confirmed 80947974 ALLERGIES Allergen (clinical drug ingredient) Drug/Non Drug Allergy do cumented on EMR Reaction Allergy Type Onset Date Status Latex/Latex Containing Products hives Non Drug Allerg y Active ENCOUNTERS from 1995 to 2022-08-22 Encounter Location Date Provider Diagnosis [facility] [address] [facility] [id number] [address] [address] Jun, ADRIAN Rivera Complex posttraumati c stress disorder F43.10 IMMUNIZATIONS Vaccine Route Administration Date Status PRIVATE MMR Unknown May 19, 2000 Administered PRIVATE MMR Unknown Nov 13, 1996 Administered Hib 4 dose schedule Unknown May 19, 2000 Administered Hib 4 dose schedule Unknown August 06, 1997 Administered PRIVATE HEP A (PEDS/ADOLESCENT-2 DOSE) Unknown Nov 15 003 Administered PRIVATE HEP A (PEDS/ADOLESCENT-2 DOSE) Unknown July 28 000 Administered PRIVATE POLIO (IPV) Unknown May 19, 2000 Administered PRIVATE VARICELLA Unknown Nov 11, 1998 Administered DTP Unknown Jan 14, 1996 Administered Hib 4 dose schedule Unknown Nov 13, 1996 Administered Hib 4 dose schedule Unknown Mar 15, 1996 Administered COVID-19, RADHA, 0.5mL Unknown September 26, 2020 Adminis tered [facility] FUNDED FLULUVAL QUAD 0.5ML 6 MONTHS AND UP 2018 IM Int ramuscular Apr 19, 2019 Administered PRIVATE TDAP (BOOSTRIX) IM Intramuscular May 09, 2018 Adminis tered OPV Unknown Jan 14, 1996 Administered Hib 4 dose schedule Unknown Jan 14, 1996 Administered PRIVATE HEP B (PEDS/ADOLESCENT, 3-DOSE) Unknown Jan 14, 1996 Administered PRIVATE HEP B (PEDS/ADOLESCENT, 3-DOSE) Unknown 1995 Administered PRIVATE HEP B (PEDS/ADOLESCENT, 3-DOSE) Unknown 1995 Administered PRIVATE HEP B (PEDS/ADOLESCENT, 3-DOSE) Unknown May 16, 1996 Administered PRIVATE MENINGOCOCCAL (MENACTRA) Unknown Oct 23, 2008 Administered PRIVATE DTAP (INFANRIX) Unknown May 19, 2000 Administ ered DTP-Hib Unknown Jan 26, 1996 Administered PRIVATE DTAP (INFANRIX) Unknown August 06, 1997 Administ ered PRIVATE TDAP (ADACEL) Unknown Dec 16, 2015 Administer ed PRIVATE TDAP (ADACEL) Unknown Oct 23, 2008 Administer ed PRIVATE HEP B (PEDS/ADOLESCENT, 3-DOSE) Unknown Mar 15, 1996 Administered 1st Booster MODERNA Bivalent, COVID-19, 0.5mL IM Intramuscular J an 2022 Administered DTP Unknown Feb 13, 1997 Administered VFC FLU 22-23 (FLULAVAL) AGE 6MO & UP IM Intramuscular Mar 29 023 Administered DTP Unknown Nov 13, 1996 Administered PRIVATE FLULAVAL QUAD 0.5ML (6 MO AND UP) 2019 IM Intramuscular Dec 22, 2017 Administered DTP Unknown Mar 15, 1996 Administered OPV Unknown Nov 13, 1996 Administered OPV Unknown Mar 15, 1996 Administered OPV Unknown Jan 26, 1996 Administered SOCIAL HISTORY Sex Assigned At [...] Once a day Active OneTouch Delica Plus [id number] - USE ONE LANCET FOUR (4) TIMES [...] Notes Treatment Notes Treatm ent Clinical Notes Jun, Complex posttraumatic stress disorder (I CD-10 - F43.10) PLAN OF TREATMENT Next Appt Details 1-2 Weeks Reason: Follow Up Provider Name:ADRY JOHN, 2022-08-23 12 :00:00 AM, [address] [facility], [id number], [place], [address], Provider Name:ADRY JOHN 2022-08-24 02 :00:00 PM, [address] , [place], [address], Follow Up:1-2 WeeksBH Follow Up Insurance Providers Payer Name Payer Address Payer Phone Insured Name Patient Relati onship to Insured Coverage Start Date Coverage End Date Subscriber Number Group Nu mber [employer] [address] [facility] [id number] Haven Valdes Self - patient is the insured [id number] MEDICATIONS ADMINISTERED Medication Instructions Date of Administration Dosage DEPO PROVERA (150 MG/ML) Apr, 150 mg DEPO PROVERA (150 MG/ML) May, 150 mg DEPO PROVERA (150 MG/ML) July, 150 mg DEPO PROVERA (150 MG/ML) Oct, 150 mg DEPO PROVERA (150 MG/ML) Jan, 150 mg DEPO PROVERA (150 MG/ML) July, 150 mg DEPO PROVERA (150 MG/ML) Nov, 150 mg DEPO PROVERA (150 MG/ML) Feb, 150 mg Depo-Provera May, 150 mg MEDRXYPROGESTERONE ACETATE Aug, 150 m g MEDRXYPROGESTERONE ACETATE Feb,
--- OUTSIDE RECORDS SUMMARY | 2022-09-01 05:35 | XMS REPORT ---
Author Author [facility] Address Unknown Phone Unavailable Care Team Providers Care Rock Singer Name Role Phone JESS MISTRY Unavailable PROBLEMS Type Condition ICD9-CM Code [id number] Code Onset Dates Condition S tatus W/U Status Risk SNOMED Code Notes Problem Complex posttraumatic stress disorder F43.10 confirmed [id number] Problem Recurrent major depressive disorder, in partial remission F33.41 confirmed 08098895 Problem Seasonal allergic rhinitis, unspecified trigger J30.2 confirmed 609188525 Problem Amenorrhea N91.2 confirmed 61516897 Problem Obesity affecting in third trimester O99.213 confirmed [id number] Problem Dietary lactose intolerance E73.9 confirmed 441547554 Problem Morbid (severe) obesity due to excess calories E66.01 confirmed 726397872 Problem Iron deficiency anemia, unspecified iron deficiency an emia type D50.9 confirmed 59110257 Problem Mild episode of recurrent major depressive disorder F33.0 confirmed 292568336 ALLERGIES Allergen (clinical drug ingredient) Drug/Non Drug Allergy do cumented on EMR Reaction Allergy Type Onset Date Status Latex/Latex Containing Products hives Non Drug Allerg y Active ENCOUNTERS from 1995 to 2022-07-09 Encounter Location Date Provider Diagnosis [facility] [address] [facility] [id number] [place] [address] July, JESS MISTRY Pilonidal cyst L05.9 1 and Surveillance of contraceptive injection Z30.42 IMMUNIZATIONS Vaccine Route Administration Date Status OPV Unknown Jan 26, 1996 Administered OPV Unknown Mar 15, 1996 Administered OPV Unknown Nov 13, 1996 Administered PRIVATE TDAP (ADACEL) Unknown Oct 23, 2008 Administer ed PRIVATE POLIO (IPV) Unknown May 19, 2000 Administered PRIVATE HEP A (PEDS/ADOLESCENT-2 DOSE) Unknown July 28, 2 000 Administered PRIVATE HEP A (PEDS/ADOLESCENT-2 DOSE) Unknown Nov 15, 003 Administered OPV Unknown Jan 14, 1996 [...] 6MO & UP IM Intramuscular Mar 29 2 023 Administered Hib 4 dose schedule Unknown [...] other tobacco user? No REASON FOR REFERRAL from 1995 to 2022-07-09 Reason Evaluation and management of pilonidal cyst Diagnosis 1 Pilonidal cyst (L05.91) Referral Organization [facility] Referring Provider First Name JESS Referring Provider Last Name FEDE Referring Provider Specialty Physician Home Service Consultant Referred Provider Cholo Machuca Referred Provider Specialty General Surgery Referral Priority Routine Referral Appointment Date 2020-08-12 General Notes Shana Christopher 07/28/2020 1:43:5 9 PM > appt 08/12/2020 @ 3:00 pm arrival time 2:30 referra faxed patient will need to bring $50.00 and must speak with FA at before appt. emgs sent Shana Christopher 11/19/2020 2:42:10 PM > records requested Clinical Notes Shana Christopher 07/23/2020 1:12:59 PM > lvm for return call to see about changing referral to Shana Cazares 07/25/2020 9:14:26 AM > lvm for return call Shana Christopher 07/28/2020 1:45:08 PM > no return call from patient to offer Vern VITAL SIGNS Height 5'4" in July, Height-cm 162.56 cm July, Weight 280 lbs July, Weight-kg 127.01 kg July, Temperature 97.7 degrees Fahrenheit July, Heart Rate 96 bpm July, Respiratory Rate 18 bpm July, Oximetry 98 % July, BMI 48.06 kg/m2 July, Blood pressure systolic 112 mmHg July, Blood pressure diastolic 74 mmHg July, MEDICATIONS Medication SIG (Take, Route, Frequency, Duration) Notes Start Da te End Date Status Active Fish Oil 1000 MG 1 capsule Orally Once a day Active Famotidine 20 MG 1 tablet at bedtime as needed Orally Once a day for 30 days May, Active Ferrous Sulfate 325 (65 Fe) MG 1 tablet Orally Once a day Active PROCEDURES No Information RESULTS No Results REASON FOR VISIT PT states that she was seen in ER last night for a spot that ripped and draining fluid. [facility] drained site and packed it told pt to follow up with PCP. PT would also like to discuss BC. PT states that she is currently on the depo and would like to remain on the depo. Maribell Arthur MA MEDICAL (GENERAL) HISTORY Type Description Date Medical [...] Treatment Notes Treatm ent Clinical Notes July, Pilonidal cyst (ICD-10 - L05.91) Packing changed. Will refer to surgery for evaluation., Pilonidal Abscess: Care Instructions material was published July, Surveillance of contraceptive injection (ICD-10 - Z30.42) Continue Depo-Provera every 3 months., Learning About Control: The Shot material was published PLAN OF TREATMENT Treatment Notes Assessment Notes Clinical Notes Pilonidal cyst Packing changed. Will refer to surgery for evaluation., Pilonidal Abscess: Care Instructions material was published Surveillance of contraceptive injection Continue Depo- Provera every 3 months., Learning About Control: The Shot material was published Referrals Referral Date Details 2020-08-12 2020-08-12, Evaluation and m anagement of pilonidal cyst, Cholo Machuca Next Appt Details prn Reason: Provider Name:ADRY JOHN, 2022-07-22 02 :20:00 PM, [address] [facility], [place], [address], Insurance Providers Payer Name Payer Address Payer Phone Insured Name Patient Relati onship to Insured Coverage Start Date Coverage End Date Subscriber Number Group Nu mber [employer] [place] [address] [address] [facility] [phone] Haven Valdes Self - patient is the insured [id number] MEDICATIONS ADMINISTERED Medication Instructions Date of [...] (150 MG/ML) Nov, 150 mg MEDRXYPROGESTERONE ACETATE Aug, 150 m g MEDRXYPROGESTERONE ACETATE Feb,
--- OUTSIDE RECORDS SUMMARY | 2022-09-01 05:35 | XMS REPORT ---
Author Author [facility] Address Unknown Phone Unavailable Care Team Providers Care Suspect Artist Supervisor Name Role Phone JESS MISTRY Unavailable PROBLEMS Type Condition ICD9-CM Code GUY16-PM Code Onset Dates Condition S tatus W/U Status Risk SNOMED Code Notes Problem Complex posttraumatic stress disorder F43.10 confirmed [id number] Problem Recurrent major depressive disorder, in partial remission F33.41 confirmed 76257755 Problem Seasonal allergic rhinitis, unspecified trigger J30.2 confirmed 471424206 Problem Amenorrhea N91.2 confirmed 97575648 Problem care in third trimester Z34.93 conf irmed [id number] Problem Obesity affecting in third trimester O99.213 confirmed 787789036113 Problem Dietary lactose intolerance E73.9 confirmed 030513725 Problem Morbid (severe) obesity due to excess calories E66.01 confirmed 758012401 Problem Iron deficiency anemia, unspecified iron deficiency an emia type D50.9 confirmed 42659444 Problem Mild episode of recurrent major depressive disorder F33.0 confirmed 806640827 ALLERGIES Allergen (clinical drug ingredient) Drug/Non Drug Allergy do cumented on EMR Reaction Allergy Type Onset Date Status Latex/Latex Containing Products hives Non Drug Allerg y Active ENCOUNTERS from 1995 to 2022-07-05 Encounter Location Date Provider Diagnosis [facility] [address] [facility] [id number] [place] [address] July, JESS MISTRY IMMUNIZATIONS Vaccine Route Administration Date Status PRIVATE HEP B (PEDS/ADOLESCENT, 3-DOSE) Unknown May 16, 1996 Administered PRIVATE HEP B (PEDS/ADOLESCENT, 3-DOSE) Unknown Mar 15, 1996 Administered PRIVATE HEP B (PEDS/ADOLESCENT, 3-DOSE) Unknown Jan 14, 1996 Administered PRIVATE HEP B (PEDS/ADOLESCENT, 3-DOSE) Unknown 1995 Administered Hib 4 dose schedule Unknown August 06, 1997 Administered Hib 4 dose schedule Unknown Nov 13, 1996 Administered Hib 4 dose schedule Unknown Mar 15, 1996 Administered Hib 4 dose schedule Unknown Jan 14, 1996 Administered PRIVATE FLULAVAL QUAD 0.5ML (6 MO AND UP) 2019 IM Intramuscular Dec 22, 2017 Administered PRIVATE HEP B (PEDS/ADOLESCENT, 3-DOSE) Unknown 1995 Administered DTP Unknown Feb 13, 1997 Administered OPV Unknown Nov 13, 1996 Administered PRIVATE TDAP (ADACEL) Unknown Oct 23, 2008 Administer ed PRIVATE TDAP (ADACEL) Unknown Dec 16, 2015 Administer ed DTP-Hib Unknown Jan 26, 1996 Administered PRIVATE MENINGOCOCCAL (MENACTRA) Unknown Oct 23, 2008 Administered 1st Booster MODERNA Bivalent, COVID-19, 0.5mL IM Intramuscular J 2022 Administered VFC FLU 22-23 (FLULAVAL) AGE 6MO & UP IM Intramuscular Mar 29, 023 Administered COVID-19, RADHA, 0.5mL Unknown September 26, 2020 Adminis tered DTP Unknown Nov 13, 1996 Administered PRIVATE HEP A (PEDS/ADOLESCENT-2 DOSE) Unknown Nov 15, 003 Administered STATE FUNDED FLULUVAL QUAD 0.5ML 6 MONTHS AND UP 2019 IM Int ramuscular Apr 19, 2019 Administered PRIVATE HEP A (PEDS/ADOLESCENT-2 DOSE) Unknown July 28 000 Administered PRIVATE TDAP (BOOSTRIX) IM Intramuscular May 09, 2018 Adminis tered PRIVATE POLIO (IPV) Unknown May 19, 2000 Administered PRIVATE VARICELLA Unknown Nov 11, 1998 Administered DTP Unknown Mar 15, 1996 Administered OPV Unknown Mar 15, 1996 Administered DTP Unknown Jan 14, 1996 Administered OPV Unknown Jan 26, 1996 Administered PRIVATE DTAP (INFANRIX) Unknown May 19, 2000 Administ ered OPV Unknown Jan 14, 1996 Administered PRIVATE DTAP (INFANRIX) Unknown August 06, 1997 Administ ered PRIVATE MMR Unknown May 19, 2000 Administered PRIVATE MMR Unknown Nov 13, 1996 Administered Hib 4 dose schedule Unknown May 19, 2000 Administered SOCIAL HISTORY Sex Assigned At : [...] Start Da te End Date Status Active Famotidine 20 MG 1 tablet at bedtime as needed Orally Once a day for 30 days May, Active Fish Oil 1000 MG 1 capsule Orally Once a day Active Ferrous Sulfate 325 (65 Fe) MG 1 tablet Orally Once a day Active PROCEDURES No Information RESULTS No Results REASON FOR VISIT *return call MEDICAL (GENERAL) HISTORY Type Description Date Medical [...] PLAN OF TREATMENT Next Appt Details Provider Name:ADRY JOHN, 2022-07-08 02 :00:00 PM, [address] [place], [address], Insurance Providers Payer Name Payer Address Payer Phone Insured Name Patient Relati onship to Insured Coverage Start Date Coverage End Date Subscriber Number Group Nu mber [facility] [address] [facility] [phone] Haven Valdes Self - patient is the insured [id number] MEDICATIONS ADMINISTERED Medication Instructions Date of Administration Dosage DEPO PROVERA (150 MG/ML) Jan, 150 mg DEPO PROVERA (150 MG/ML) July, 150 mg Depo-Provera May, 150 mg DEPO PROVERA (150 MG/ML) Nov, 150 mg DEPO PROVERA (150 MG/ML) 20 Apr, 2019 150 mg DEPO PROVERA (150 MG/ML) Oct, 150 mg DEPO PROVERA (150 MG/ML) May, 150 mg DEPO PROVERA (150 MG/ML) Feb, 150 mg DEPO PROVERA (150 MG/ML) July, 150 mg MEDRXYPROGESTERONE ACETATE 14 Feb, 2016 MEDRXYPROGESTERONE ACETATE 05 Aug, 2016 150 m g
[2022-09-01] MEDS ORDERED: CITRIC ACID/SOB CIT (BICITRA) 30 ML UDC PO ONE (05:45)
[2022-09-01] MEDS ORDERED: LACTATED RINGERS 1,000 ML IV PRN ×2 (05:45)
[2022-09-01] MEDS ORDERED: METOCLOPRAMIDE INJ 10 MG/2 ML (REGLAN) IV ONE (05:45)
[2022-09-01] MEDS ORDERED: ceFAZolin INJECTION 2,000 MG in NS (IVPB) 50 ML IV ONE (05:45)
[2022-09-01] MEDS ORDERED: FAMOTIDINE 20MG/2ML IV (PEPCID) IV ONE (05:45)
[2022-09-01 05:58] LABS: BASOPHILS % (AUTO) 0 % (0-10); EOSINOPHILS # (AUTO) 0.2 10^3/uL (0.0-0.3); EOSINOPHILS % (AUTO) 2 % (0-10); HEMATOCRIT 35 % (35-52); HEMOGLOBIN 11.5 g/dL (11.5-16.0); LYMPHOCYTES # (AUTO) 2.4 10^3/uL (1.0-4.0); LYMPHOCYTES % (AUTO) 25 % (12-44); MEAN CORPUSCULAR HEMOGLOBIN 26 pg (25-34); MEAN CORPUSCULAR HGB CONC 33 g/dL (32-36); MEAN CORPUSCULAR VOLUME 80 fL (80-99); MEAN PLATELET VOLUME 9.6 fL (9.0-12.2); MONOCYTES # (AUTO) 0.5 10^3/uL (0.0-1.0); MONOCYTES % (AUTO) 6 % (0-12); NEUTROPHILS # (AUTO) 6.3 10^3/uL (1.8-7.8); NEUTROPHILS % (AUTO) 67 % (42-75); PLATELET COUNT 304 10^3/uL (130-400); WHITE BLOOD COUNT 9.5 10^3/uL (4.3-11.0)
[2022-09-01] MEDS ORDERED: OXYTOCIN PRE-MIX DRIP 1,000 ML IV ONE (07:10)
[2022-09-01] MEDS ORDERED: fentaNYL INJ 100 MCG/2 ML AMP ONE (07:10)
--- NOTE | 2022-09-01 07:21 | History & Physical-OB ---
OB - Chief Complaint & HPI Date/Time Date of Admission: Date of Admission: Sep 01, 2022 at 05:31 Date seen by a Provider: Sep 01, 2022 Time Seen by a Provider: 07:10 Chief Complaint/History OB-Reason for Admission/Chief: Section Hx : 3 Hx Para: 2 Expected Date of Delivery: Sep 08, 2022 Gestational Age in Weeks: 39 Gestational Age in Days: 0 Indication for : desires repeat Admission Nurse Assessment Rev: Yes Allergies and Home Medications Allergies Coded Allergies: latex (Verified Allergy, Unknown, 08/25/22) Patient Home Medication List Home Medication List Reviewed: Yes Cranberry Conc/Ascorbic Acid (Cranberry 12,600 mg Softgel) 12,600 Mg-20 Mg Capsule, 1 EACH PO DAILY, (Reported) Entered as Reported by: Adele Flanagan on 08/25/22 1251 Famotidine (Acid Anesthesiology Physician (FAMOTIDINE)) 20 Mg Tablet, 20 MG PO DAILY, (Reported) Entered as Reported by: Adele Flanagan on 08/25/22 1251 Ferrous Sulfate (Iron) 325 Mg Tablet, 325 MG PO DAILY, (Reported) Entered as Reported by: RONNELL ADAMSON on 09/09/20 1219 Multivit-Min/Folic Acid/Biotin (Hair, Skin & Nails Caplet) 66.7 Mcg-1,000 Mcg Tablet, 3 EACH PO DAILY, (Reported) Entered as Reported by: Adele Flanagan on 08/25/22 1251 [place]-3/Dha/Epa/Fish Oil (Fish Oil 1,000 mg Softgel) 250 Mg-500 Mg-1,000 Mg Capsule, 1 EACH PO, (Reported) Entered as Reported by: Adele Flanagan on 08/25/22 1251 Vit No.124/Iron/FA ( Vitamin Tablet) 27 Mg Iron-800 Mcg Tablet, 1 EACH PO, (Reported) Entered as Reported by: ARA WARE on 07/24/222023 OB - History Hx of Present Care: Yes Ultrasounds: Normal mid trimester US Obstetrical Complications: Gestational Diabetes Medical Complications: None Obstetrical History Hx Termination: No Hx Multiple Gestation: No Hx Stillbirth: No Hx Complication: No Hx Induced Hypertens: No Hx Maternal Gestational Diabet: No Delivery History Hx Dystocia: No Hx Large For Gestational Age I: No Hx Small for Gestational Age I: No Hx Section: No Hx Vaginal Delivery Post C-Sec: No Hx Blood Disorders: No Adverse Rxn to Tranfusion: No Patient Past Medical History Depression Social History/Family History 2nd Hand Smoke Exposure: No Immunizations First/Initial COVID19 Vaccine: 04/10 Second COVID19 Vaccination: YES 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: [employer] Hepatitis A: No Hepatitis B: No Tetanus Booster (TDap): Less than 5yrs OB - Admission Exam Physical Exam Vitals: Vital Signs 09/01/22 05:50 Temp 36.6 Pulse 93 Resp 18 Pulse Ox 98 O2 Delivery Room Air HEENT: NCAT Heart: Rhythm Normal Lungs: Clear Abdomen: Gravid Extremities: Normal Reflexes: Normal Accelerations: Accelerations Present Decelerations: No Decelerations Short Term Variability: Present Production Planning Supervisor Variability: Average (6-25) Contractions on Admission: >10 Minutes Apart Intensity: Mild Labs Laboratory Tests Test 09/01/22 05:45 Range/Units White Blood Count 9.5 4.3-11.0 10^3/uL Red Blood Count 4.41 3.80-5.11 10^6/uL Hemoglobin 11.5 11.5-16.0 g/dL Hematocrit 35 35-52 % Mean Corpuscular Volume 80 80-99 fL Mean Corpuscular Hemoglobin 26 25-34 pg Mean Corpuscular Hemoglobin Concent 33 32-36 g/dL Red Cell Distribution Width 16.6 H 10.0-14.5 % Platelet Count 304 130-400 10^3/uL Mean Platelet Volume 9.6 9.0-12.2 fL Immature Granulocyte % (Auto) 0 % Neutrophils (%) (Auto) 67 42-75 % Lymphocytes (%) (Auto) 25 12-44 % Monocytes (%) (Auto) 6 0-12 % Eosinophils (%) (Auto) 2 0-10 % Basophils (%) (Auto) 0 0-10 % Neutrophils # (Auto) 6.3 1.8-7.8 10^3/uL Lymphocytes # (Auto) 2.4 1.0-4.0 10^3/uL Monocytes # (Auto) 0.5 0.0-1.0 10^3/uL Eosinophils # (Auto) 0.2 0.0-0.3 10^3/uL Basophils # (Auto) 0.0 0.0-0.1 10^3/uL Immature Granulocyte # (Auto) 0.0 0.0-0.1 10^3/uL OB - Assessment/Plan/Diagnosis Assessment Assessment: section Admission Dx 26 yo @ 39 weeks Previous GDM diet controlled Admission Status: Inpatient Order (span 2 midnights) Reason for Inpatient Admission: RCS at 39 weeks Plan Plan: Section NANCY AZUL DO Sep 01, 2022 07:21
--- NOTE | 2022-09-01 07:23 | Discharge Inst-Women's Service ---
Discharge Inst-Women's Serv Depart Medication/Instructions New, Converted or Re-Newed RX: Transmitted to Pharmacy Final Diagnosis POD 2 RLTCS Problems Reviewed?: Yes Consults/Follow Up Additional Follow Up: Yes Orders/Referrals Dr. Houston in 7-10 days and in 8 weeks Activity Activity: Activity as Tolerated Driving Instructions: No Driving for 1 Week NO SMOKING: NO SMOKING Nothing Inside Vagina: No Douching, No [place], No Tampons Diet Discharge Diet: No Restrictions Symptoms to Report to : Bleeding Excessive, Pain Increased, Fever Over 101 Degrees F, Vaginal Bleeding Increase, Questions/Concerns For Any Problems or Questions: Contact Your Physician Skin/Wound Care Infection Signs and Symptoms: Increased Redness, Foul Odor of Wound, Increased Drainage, Skin Itchy or Has a Rash, Increased Swelling, Temperature Above 101 F Operative Area Clean and Dry: Keep Incision Clean/Dry Stitches/[place]/Dermabond: Dermabond, Care of Stitches Bathing Instructions: NANCY Solo DO Sep 01, 2022 07:23
[2022-09-01] MEDS ORDERED: IBUP-844 PO (07:24)
[2022-09-01] MEDS ORDERED: DOCU100C37 PO (07:24)
[2022-09-01] MEDS ORDERED: ACHD5005 PO (07:24)
[2022-09-01] MEDS ORDERED: MEASLES,MUMPS,RUBELLA 1 EA INJ SC SCH (07:30)
[2022-09-01] MEDS ORDERED: BISACODYL 10 MG SUPP (DULCOLAX) PR PRN (07:30)
[2022-09-01] MEDS ORDERED: NALOXONE 0.4 MG/ML 1 ML (NARCAN) VIAL IV PRN (07:30)
[2022-09-01] MEDS ORDERED: ONDANSETRON 4 MG/2 ML (SDV) Z0FRAN IVP PRN (07:30)
[2022-09-01] MEDS ORDERED: TETANUS,DIPTH,PERTUSS P/F (BOOSTRIX) 0.5 ML VIAL IM SCH (07:30)
[2022-09-01] MEDS: OXYTOCIN PRE-MIX DRIP 500 ML IV SCH ×2 (08:15→10:35)
[2022-09-01] MEDS: KETOROLAC 30 MG/ML VIAL IV SCH ×3 (09:06→21:20)
[2022-09-01] MEDS: DOCUSATE SODIUM 100 MG (COLACE) CAP PO SCH ×2 (10:35→21:20)
[2022-09-01] MEDS: HYDROcodone/APAP 5 MG/325 MG (LORTAB) TAB PO PRN ×2 (11:28→19:36)
[2022-09-01] MEDS ORDERED: METHYLERGONOVINE 0.2 MG/ML (METHERGINE) AMP IM ONE (11:45)
[2022-09-01] MEDS ORDERED: CATHETER FLUSH 10 ML SYR IV SCH (14:00)
--- NOTE | 2022-09-01 14:22 | OPERATIVE REPORT ---
PREOPERATIVE DIAGNOSES: 1. A 26-year-old at 39 weeks' gestation. 2. Previous section. POSTOPERATIVE DIAGNOSES: 1. A 26-year-old at 39 weeks' gestation. 2. Previous section. PROCEDURE: Repeat low transverse section. SURGEON: Kilo Houston DO ANESTHESIA: Spinal. ESTIMATED BLOOD LOSS: 500 mL URINE OUTPUT: 50 mL clear at the end of the procedure. FLUIDS: 1000 mL lactated Ringer's solution. FINDINGS: A live female infant weighing 8 pounds 2 ounces, Apgars of 8 and 8. Grossly normal appearing uterus, bilateral fallopian tubes and ovaries. SPECIMEN SENT: None. INDICATIONS FOR PROCEDURE: This 26-year-old female patient had sought care with the [facility] and Dr. Montenegro. Her care was uncomplicated with exception of suspected LGA macrosomic as well as gestational diabetes that was diet controlled. I discussed with the patient delivered at 39 weeks, if blood sugars remain controlled, they are agreeable to proceed with this. Risks of procedure discussed with the patient in detail including risk of bleeding, infection, damage to surrounding structures including, but not limited to bowel, bladder, ureter, kidneys, possible need for operation, postoperative complications that may occur, recovery timeframe, risk from anesthesia and even . After everything was discussed with the patient in detail, a consent was obtained, the patient was taken to the operating room. OPERATIVE REPORT IN DETAIL: Once in the operating room, spinal analgesia was administered and found to be adequate. She was placed in supine position with leftward tilt, prepped and draped in normal sterile fashion. A timeout was performed. Anesthesia was tested. I then made a Pfannenstiel skin incision through a preexisting scar using knife and carried down to underlying fascia using Bovie cautery. The fascial incision was extended laterally using Bovie cautery. The superior aspect of fascial incision was then grasped with Gulilermina clamps, tented up and dissected off the underlying rectus muscles. The inferior aspect of fascial incision was then grasped with Guillermina clamps, tented up and dissected off the underlying rectus muscles. The rectus muscles were dissected bluntly down the midline, which exposed the peritoneum, which I entered bluntly and extended using blunt traction. Benji ring retractor was placed in the peritoneal incision, which offers excellent lateral sidewall retraction. I identified the lower uterine segment and found to be thinned out. I made a low transverse incision to the vesicouterine peritoneum and bluntly dissected off the lower uterine segment, creating a bladder flap. I then proceeded with my myotomy until membranes were visualized, at which point I extended the uterine incision laterally and superiorly using bandage scissors. Amniotomy was then performed using Allis clamp. Clear fluid was noted. The was found in vertex presentation. With gentle fundal pressure, the 's head was elevated up the incision, where it was delivered through the incision. The nares and oropharynx were bulb suctioned. Anterior and posterior shoulders were delivered. The was brought to the operative field where cords were clamped and cut and was handed off to waiting nurses in attendance. Cord blood was collected. Three-vessel cord with intact placenta was delivered spontaneously thereafter. IV Pitocin was initiated to facilitate uterine contraction. Uterine fundus confirmed by manual massage. The uterus was then exteriorized and cleared of all endometrial clots and debris. I then proceeded with closing the uterine incision using 0 Vicryl suture in a running locked fashion. Second layer of imbricating 0 Monocryl was placed. Excellent hemostasis was noted after doing this, I then placed the uterus back in the pelvis and copiously irrigated the pelvis using normal saline. Once again, there was no active bleeding noted from any of my dissection planes. I placed Interceed antiadhesive over my low transverse incision. I removed the Benji ring retractor, I then proceeded with closing the peritoneum using 3-0 Vicryl suture in a running fashion. Rectus muscles were reapproximated using 3-0 Vicryl suture in interrupted fashion. The fascia was reapproximated using 0 Vicryl suture in a running fashion. Subcutaneous tissue was reapproximated using 3-0 plain in an interrupted subcutaneous stitch and skin reapproximated using 4-0 Monocryl in running subcuticular. Dermabond was applied to incision, sterile dressing with adhesive white tape. The patient tolerated the procedure well and was taken to recovery in stable condition. Lap and sponge counts were correct at the end of the procedure. Instrument counts correct as well. Two grams of Ancef were given preoperatively for infection prophylaxis. Job ID: [id number] DocumentID: [id number] Dictated Date: 09/01/2022 08:39:58 Tailing Hand Date: 09/01/2022 14:20:00 Dictated By: DO PENNY DAVID
[2022-09-02 00:30] VITALS: BP 118/62
[2022-09-02] MEDS: KETOROLAC 30 MG/ML VIAL IV SCH (04:29)
[2022-09-02 04:30] VITALS: BP 113/60
[2022-09-02 06:21] LABS: BASOPHILS % (AUTO) 0 % (0-10); EOSINOPHILS # (AUTO) 0.2 10^3/uL (0.0-0.3); EOSINOPHILS % (AUTO) 2 % (0-10); HEMATOCRIT 24 % (35-52); HEMOGLOBIN 7.6 g/dL (11.5-16.0); LYMPHOCYTES # (AUTO) 2.2 10^3/uL (1.0-4.0); LYMPHOCYTES % (AUTO) 25 % (12-44); MEAN CORPUSCULAR HEMOGLOBIN 26 pg (25-34); MEAN CORPUSCULAR HGB CONC 32 g/dL (32-36); MEAN CORPUSCULAR VOLUME 81 fL (80-99); MEAN PLATELET VOLUME 9.6 fL (9.0-12.2); MONOCYTES # (AUTO) 0.5 10^3/uL (0.0-1.0); MONOCYTES % (AUTO) 6 % (0-12); NEUTROPHILS % (AUTO) 67 % (42-75); PLATELET COUNT 235 10^3/uL (130-400)
--- NOTE | 2022-09-02 07:29 | Postpartum Progress Note ---
Note Note Day #1 Subjective: Patient is without complaints. Ambulating, voiding. Tolerating a regular diet without nausea or vomiting. Normal lochia. Pain is well controlled with oral pain medications. Breast-feeding. [] Objective: [] Physical Exam: General - Alert and oriented, no apparent distress Breast symmetrical no erythema, edema or engorgement Abdomen - Soft, appropriately tender to palpation, non-distended, fundus firm at umbilicus Incision clean dry intact Lochia minimal Extremities - no edema, negative Candace's bilaterally Assessment: [] post- day #1 status post Low transverse section Anemia Recovering well, hemodynamically stable Plan: Routine care. Encourage breast feeding. Encourage ambulation. Ferrous sulfate supplementation. Plan for discharge [] Vitals - Labs Vital Signs - I&O Vital Signs Date Time Temp Pulse Resp B/P (MAP) Pulse Ox O2 Delivery O2 Flow Rate FiO2 09/02/22 04:30 36.4 103 18 113/60 (77) 98 Room Air 09/02/22 00:30 36.8 98 18 118/62 (80) 98 Room Air 09/01/22 20:00 36.7 100 18 126/70 (88) 98 Room Air 09/01/22 15:30 35.5 94 18 112/73 (86) 95 Room Air 09/01/22 11:43 35.8 83 18 101/59 (73) 99 Room Air 09/01/22 09:12 Room Air 09/01/22 09:12 36.0 18 124/80 (95) 98 Room Air 09/01/22 08:54 35.3 18 120/81 (94) 98 Room Air 09/01/22 08:54 Room Air 09/01/22 08:36 Room Air 09/01/22 08:36 35.5 16 117/75 (89) 98 Room Air 09/01/22 08:21 Room Air 09/01/22 08:21 36.3 86 16 105/68 (80) 98 Room Air 09/01/22 08:21 36.3 16 105/68 (80) 98 Room Air I & O 09/02/22 07:00 Intake Total 4950 ml Output Total 3155 ml Balance 1795 ml Labs Laboratory Tests 09/02/22 05:51: White Blood Count 9.0, Red Blood Count 2.98L, Hemoglobin 7.6#L, Hematocrit 24L, Mean Corpuscular Volume 81, Mean Corpuscular Hemoglobin 26, Mean Corpuscular Hemoglobin Concent 32, Red Cell Distribution Width 16.8H, Platelet Count 235, Mean Platelet Volume 9.6, Immature Granulocyte % (Auto) 1, Neutrophils (%) (Auto) 67, Lymphocytes (%) (Auto) 25, Monocytes (%) (Auto) 6, Eosinophils (%) (Auto) 2, Basophils (%) (Auto) 0, Neutrophils # (Auto) 6.0, Lymphocytes # (Auto) 2.2, Monocytes # (Auto) 0.5, Eosinophils # (Auto) 0.2, Basophils # (Auto) 0.0, Immature Granulocyte # (Auto) 0.1 MAXINE AHUMADA 15, 2023 07:28
[2022-09-02 08:48] VITALS: BP 121/75
[2022-09-02] MEDS: IBUPROFEN 600 MG (MOTRIN) TAB PO SCH ×3 (08:49→22:24)
[2022-09-02] MEDS: DOCUSATE SODIUM 100 MG (COLACE) CAP PO SCH ×2 (08:49→21:09)
[2022-09-02] MEDS: HYDROcodone/APAP 5 MG/325 MG (LORTAB) TAB PO PRN ×2 (08:49→16:29)
--- NOTE | 2022-09-02 10:37 | Anesthesia-Regional Post-Op ---
Regional Patient Condition Mental Status: Alert, Oriented x3 Circulation: Same as Pre-Op Headache: Absent Sensation: Full Recovery Motor Block: Absent Post Op Complications Complications None Follow Up Care/Instructions Patient Instructions None needed. Anesthesia/Patient Condition Patient is doing well, no complaints, stable vital signs, no apparent adverse anesthesia problems. No complications reported per nursing. LOVE GILMORE CRNA Sep 02, 2022 10:37
[2022-09-02 16:26] VITALS: BP 119/76
[2022-09-02 20:06] VITALS: BP 117/72
[2022-09-03 03:00] VITALS: BP 120/74
[2022-09-03] MEDS: IBUPROFEN 600 MG (MOTRIN) TAB PO SCH ×2 (04:04→10:51)
--- NOTE | 2022-09-03 07:29 | Postpartum Progress Note ---
Note Note Day # 2 Subjective: Patient is without complaints. Ambulating, voiding. Tolerating a regular diet without nausea or vomiting. Normal lochia. Pain is well controlled with oral pain medications. Patient is breast-feeding and that is going well. Objective: [] Physical Exam: General - Alert and oriented, no apparent distress Breasts are symmetrical no erythema, edema or engorgement Abdomen - Soft, appropriately tender to palpation, non-distended, fundus firm at umbilicus Incision clean dry intact no signs or symptoms of infection Lochia minimal Extremities - no edema, negative Candace's bilaterally Assessment: [] post- day # 2 Status post low transverse section Recovering well, hemodynamically stable Anemia of puerperium Plan: Routine care. Encourage breast feeding. Encourage ambulation. Ferrous sulfate supplementation. Plan for discharge today Vitals - Labs Vital Signs - I&O Vital Signs Date Time Temp Pulse Resp B/P (MAP) Pulse Ox O2 Delivery O2 Flow Rate FiO2 09/03/22 03:00 36.7 89 18 120/74 (89) 99 Room Air 09/02/22 20:06 36.6 93 18 117/72 (87) 99 Room Air 09/02/22 16:26 36.2 97 18 119/76 (90) 98 Room Air 09/02/22 08:48 36.1 112 18 121/75 (90) 98 Room Air Labs Microbiology 09/01/22 MRSA Screen - Final, Complete MRSA not isolated MAXINE AHUMADA DO Sep 03, 2022 07:29
[2022-09-03 08:30] VITALS: BP 116/62
== END 2022-09-03 13:25 | disposition home or self-care (01) | DRG 788 ==
LOC: LDRP 05:31
PROVIDERS: ADMIT Obstetrics & Gynecology; ATTEND Obstetrics & Gynecology
PROC: 10D00Z1 Extraction of Products of Conception, Low, Open Approach (ICD-10-PCS; principal; 2022-09-01 07:15)
DX: O34.211 Maternal care for low transverse scar from previous cesarean delivery (principal); Z3A.39 39 weeks gestation of pregnancy; Z37.0 Single live birth; O99.344 Other mental disorders complicating childbirth; O24.420 Gestational diabetes mellitus in childbirth, diet controlled; O90.81 Anemia of the puerperium; D64.9 Anemia, unspecified
CPT/HCPCS: 36415; 85025; 86850; 86900; 86901; 87081; 94664

== ENCOUNTER 2022-09-06 15:56 | Emergency (ER) | payer MEDICAID ==
[~2022-09-06] VITALS: Ht 160 cm; Wt 129.0 kg
[~2022-09-06 15:56] MED LIST changes: +IBUP-844 PO
--- NOTE | 2022-09-06 16:43 | ED General ---
General Chief Complaint: Post OP Complications/Pain Stated Complaint: LEGS SWELLING | TINGLING IN ARMS AND LEGS Nursing Triage Note: PT AMBULATORY TO ER. PT REPORTS HAD A PERFORMED HERE ON 09/01. PT REPORTS AFTER STARTED DEVELOPING BILATERAL LEG SWELLING, PROGRESSIVELY GETTING WORSE. PT ALSO REPORTS TINGLING TO HER LEGS AND L ARM NUMBNESS ONSET YESTERDAY EVENING. REPORTS SOB WHEN LAYING FLAT. PT SEEN AT CLINIC, REFERRED TO ER FOR FURTHER EVAL. Source of Information: Patient, RN/MD Exam Limitations: No Limitations History of Present Illness Date Seen by Provider: Sep 06, 2022 Time Seen by Provider: 16:00 Initial Comments 26-year-old female G3, P3 coming in as a referral from formerly [facility] due to lower extremity swelling. She had a on September 01 due to gestational diabetes and previously had large babies. went well, baby is healthy. She is doing a mix of breast-feeding and bottlefeeding. Since the , she has had bilateral lower extremity swelling which improves when she lifts up her legs. Has some [id number]-[id number] in her feet and also in her left arm with no significant swelling in her arms. Denies any chest pain. Denies any redness or pain to her legs. Does endorse some mild shortness of breath if she is laying flat for some time. She states that she also feels short of breath if she is going on a walk, this improves when she walks for longer period of time. Otherwise denying any other acute complaints. Allergies and Home Medications Allergies Coded Allergies: latex (Verified Allergy, Unknown, 08/25/22) Patient Home Medication List Home Medication List Reviewed: Yes Cranberry Conc/Ascorbic Acid (Cranberry 12,600 mg Softgel) 12,600 Mg-20 Mg Capsule, 1 EACH PO DAILY, (Reported) Entered as Reported by: Adele Flanagan on 08/25/22 1251 Docusate Sodium (Docusate Sodium) 100 Mg Capsule, 100 MG PO BID PRN for CONSTIPATION-1ST LINE Prescribed by: NANCY AZUL on 09/01/22 0724 Famotidine (Acid Structural Layout Worker (FAMOTIDINE)) 20 Mg Tablet, 20 MG PO DAILY, (Reported) Entered as Reported by: Adele Flanagan on 08/25/22 1251 Ferrous Sulfate (Iron) 325 Mg Tablet, 325 MG PO DAILY, (Reported) Entered as Reported by: RONNELL ADAMSON on 09/09/20 1219 Hydrocodone/Acetaminophen (Hydrocodone-Acetamin 5-325 mg) 5 Mg-325 Mg Tablet, 1- 2 EA PO Q6HR PRN for PAIN-MODERATE (5-7) Prescribed by: NANCY AZUL on 09/01/22 0724 Ibuprofen (Ibu) 600 Mg Tablet, 600 MG PO Q6H Prescribed by: NANCY AZUL on 09/01/22 0724 Multivit-Min/Folic Acid/Biotin (Hair, Skin & Nails Caplet) 66.7 Mcg-1,000 Mcg Ta blet, 3 EACH PO DAILY, (Reported) Entered as Reported by: Adele Flanagan on 08/25/22 1251 [place]-3/Dha/Epa/Fish Oil (Fish Oil 1,000 mg Softgel) 250 Mg-500 Mg-1,000 Mg Capsule, 1 EACH PO, (Reported) Entered as Reported by: Adele Flanagan on 08/25/22 1251 Vit No.124/Iron/FA ( Vitamin Tablet) 27 Mg Iron-800 Mcg Tablet, 1 EACH PO, (Reported) Entered as Reported by: ARA WARE on 07/24/222023 Review of Systems Review of Systems Constitutional: No fever EENTM: no symptoms reported Respiratory: see HPI Cardiovascular: no symptoms reported Gastrointestinal: no symptoms reported Genitourinary: no symptoms reported Musculoskeletal: see HPI Psychiatric/Neurological: See HPI Past Qokwkzs-Uxgqmf-Pymuaz Hx Patient Social History Tobacco Use?: No Substance use?: No Alcohol Use?: No Pt feels they are or have been: No Immunizations Up To Date Tetanus Booster (TDap): Less than 5yrs PED Vaccines UTD: No First/Initial COVID19 Vaccinat: RECEIVED, UNK WHEN Second COVID19 Vaccination Max: YES Seasonal Allergies Seasonal Allergies: Yes Past Medical History Surgery/Hospitalization HX: C SECTION, CYST REMOVAL Surgeries: Yes (pilonidal cyst X2,) Section Respiratory: No Currently Using CPAP: No Currently Using BIPAP: No Cardiac: No Neurological: No Last Menstrual Period: Nov 24, 2021 Reproductive Disorders: No Female Reproductive Disorders: Denies Sexually Transmitted Disease: Yes (HERPES 1) HIV/AIDS: No Genitourinary: No Gastrointestinal: No Musculoskeletal: No Endocrine: Yes (Vitamin D deficiency, GESTATIONAL DM) Diabetes, Non-Insulin dep HEENT: No Cancer: No Psychosocial: Yes Anxiety, PTSD, Depression Integumentary: No (pilondial cyst) Blood Disorders: Yes (low iron anemia) Adverse Reaction/Blood Tranf: No Family Medical History FH: hemophilia paternal gm Physical Exam Vital Signs Vital Signs - First Documented 09/06/22 16:02 Temp 36.7 Pulse 102 Resp 18 B/P (MAP) 141/76 (97) Pulse Ox 97 O2 Delivery Room Air Capillary Refill : Height, Weight, BMI Height: 5'2.00" Weight: 230lbs. 4.0oz. [id number]; 50.00 BMI Method:Stated General Appearance: No Apparent Distress, WD/WN Eyes: Bilateral Eye Normal Inspection HEENT: PERRL/EOMI, Normal ENT Inspection, Pharynx Normal Neck: Full Range of Motion, Normal Inspection, Non Tender, Supple Respiratory: Chest Non Tender, Lungs Clear, Normal Breath Sounds, No Accessory Muscle Use, No Respiratory Distress Cardiovascular: Regular Rate, Rhythm, Normal Peripheral Pulses Gastrointestinal: Normal Bowel Sounds, Non Tender, Soft, Other ( wound clean, dry, intact) Back: Normal Inspection, No CVA Tenderness, No Vertebral Tenderness Extremity: Normal Capillary Refill, Normal Inspection, Normal Range of Motion, Non Tender, No Calf Tenderness, Other (Lower extremity edema, equal, no redness or pain) Neurologic/Psychiatric: Alert, No Motor/Sensory Deficits, Normal Mood/Affect Skin: Normal Color, Warm/Dry Progress/Results/Core Measures Suspected Sepsis SIRS Temperature: Pulse: 102 Respiratory Rate: 18 Laboratory Tests 09/06/22 16:54: White Blood Count 8.6 Blood Pressure 141 /76 Mean: 97 Laboratory Tests 09/06/22 16:54: Creatinine 0.76, INR Comment 0.9, Platelet Count 351, Total Bilirubin 0.2 Results/Orders Lab Results Laboratory Tests Test 09/06/22 16:10 09/06/22 16:54 Range/Units Urine Color YELLOW Urine Clarity SL CLOUDY Urine pH 6.0 5-9 Urine Specific [place] 1.015 L 1.016-1.022 Urine Protein TRACE H NEGATIVE Urine Glucose (UA) NEGATIVE NEGATIVE Urine Ketones NEGATIVE NEGATIVE Urine Nitrite NEGATIVE NEGATIVE Urine Bilirubin NEGATIVE NEGATIVE Urine Urobilinogen 0.2 < = 1.0 MG/DL Urine Leukocyte Esterase 3+ H NEGATIVE Urine RBC (Auto) 3+ H NEGATIVE Urine RBC TNTC H /HPF Urine WBC 25-50 H /HPF Urine Squamous Epithelial Cells 2-5 /HPF Urine Crystals NONE /LPF Urine Bacteria TRACE /HPF Urine Casts NONE /LPF Urine Mucus NEGATIVE /LPF Urine Culture Indicated YES White Blood Count 8.6 4.3-11.0 10^3/uL Red Blood Count 3.31 L 3.80-5.11 10^6/uL Hemoglobin 8.5 L 11.5-16.0 g/dL Hematocrit 27 L 35-52 % Mean Corpuscular Volume 81 80-99 fL Mean Corpuscular Hemoglobin 26 25-34 pg Mean Corpuscular Hemoglobin Concent 32 32-36 g/dL Red Cell Distribution Width 16.6 H 10.0-14.5 % Platelet Count 351 130-400 10^3/uL Mean Platelet Volume 8.5 L 9.0-12.2 fL Immature Granulocyte % (Auto) 1 % Neutrophils (%) (Auto) 67 42-75 % Lymphocytes (%) (Auto) 23 12-44 % Monocytes (%) (Auto) 6 0-12 % Eosinophils (%) (Auto) 3 0-10 % Basophils (%) (Auto) 1 0-10 % Neutrophils # (Auto) 5.7 1.8-7.8 10^3/uL Lymphocytes # (Auto) 2.0 1.0-4.0 10^3/uL Monocytes # (Auto) 0.5 0.0-1.0 10^3/uL Eosinophils # (Auto) 0.3 0.0-0.3 10^3/uL Basophils # (Auto) 0.0 0.0-0.1 10^3/uL Immature Granulocyte # (Auto) 0.1 0.0-0.1 10^3/uL Prothrombin Time 12.0 L 12.2-14.7 SEC INR Comment 0.9 0.8-1.4 Activated Partial Thromboplast Time 27 24-35 SEC Sodium Level 140 135-145 MMOL/L Potassium Level 3.8 3.6-5.0 MMOL/L Chloride Level 106 98-107 MMOL/L Carbon Dioxide Level 24 21-32 MMOL/L Anion Gap 10 5-14 MMOL/L Blood Urea Nitrogen 10 7-18 MG/DL Creatinine 0.76 0.60-1.30 MG/DL Estimat Glomerular Filtration Rate 111 BUN/Creatinine Ratio 13 Glucose Level 83 70-105 MG/DL Calcium Level 9.4 8.5-10.1 MG/DL Corrected Calcium 10.0 8.5-10.1 MG/DL Total Bilirubin 0.2 0.1-1.0 MG/DL Aspartate Amino Transf (AST/SGOT) 41 H 5-34 U/L Alanine Aminotransferase (ALT/SGPT) 33 0-55 U/L Alkaline Phosphatase 66 40-136 U/L Troponin I < 0.028 <0.028 NG/ML B-Type Natriuretic Peptide 99.0 <100.0 PG/ML Total Protein 6.6 6.4-8.2 GM/DL Albumin 3.3 3.2-4.5 GM/DL My Orders Orders - DARLENE ALATORRE MD Bnp Prentiss (09/06/22 16:24) Cbc With Automated Diff (09/06/22 16:24) Comprehensive Metabolic Panel (09/06/22 16:24) Protime With Inr (09/06/22 16:24) Partial Thromboplastin Time (09/06/22 16:24) Ua Culture If Indicated (09/06/22 16:24) Troponin I [place] (09/06/22 16:24) Chest Pa/Lat (2 View) (09/06/22 16:24) Ed Iv/Invasive Line Start (09/06/22 16:24) Ekg Tracing (09/06/22 16:24) Urine Culture (09/06/22 16:10) Vital Signs/I&O 09/06/22 16:02 Temp 36.7 Pulse 102 Resp 18 B/P (MAP) 141/76 (97) Pulse Ox 97 O2 Delivery Room Air Capillary Refill : Blood Pressure Mean: 97 Progress Note : Progress Note 26-year-old female being referred from her OB due to mild dyspnea and leg swelling. ABCs were intact and vitals were stable on presentation. Her legs have mild edema, it looks like dependent edema on exam. No redness that would be concerning for cellulitis, no pain that would be concerning for a DVT, and the legs look identical which would make DVT less likely as well. Lung sounds are clear, oxygen normal, and she appears comfortable. EKG with no acute ischemic changes. An IV was placed and basic labs were obtained including cardiac biomarkers. White blood cell count normal, troponin negative, BNP normal, creatinine normal, urinalysis without evidence of infection. I did a iywak-iz-aabh ultrasound showing normal ejection fraction, no pericardial effusion, and normal collapsing veins in her legs with no obvious proximal DVT. Chest x-ray ordered and interpreted by me showing normal cardiac silhouette and no other acute abnormalities. On reassessment, the patient continues to be wel l-appearing, I have a very low suspicion for peripartum cardiomyopathy as she was referred for. Also have a low suspicion for DVT or PE clinically. I believe she stable for discharge with outpatient follow-up. She was sent home with strict return precautions ECG Initial ECG Impression Date: Sep 06, 2022 Initial ECG Impression Time: 16:35 Initial ECG Rate: 99 Initial ECG Rhythm: Normal Sinus Comment Narrow QRS, normal axis, no significant ST changes or T wave abnormalities Diagnostic Imaging Diagonstic Imaging: Xray (chest) Comments NAME: [facility] REC#: [id number] PT STATUS: REG ER : 1995 PHYSICIAN: DARLENE ALATORRE MD ADMIT DATE: 09/06/22/ER Draft Date of Exam:09/06/22 CHEST PA/LAT (2 VIEW) INDICATION: Shortness of breath, recent section. EXAMINATION: PA and lateral chest obtained at 5:07 p.m. FINDINGS: Heart and mediastinal silhouette are normal in appearance. The lungs are clear. There is no pneumothorax or pleural fluid. IMPRESSION: Negative chest. Dictated on workstation # [id number] Dict: 09/06/22 1715 Trans: 09/06/22 1717 [id number] Interpreted by: MIKI HERNANDEZ MD Electronically signed by: Departure Impression Primary Impression: Swelling of lower extremity Disposition: 01 HOME, SELF-CARE Condition: Stable Departure-Patient Inst. Decision time for Depature: 18:00 Referrals: [facility] (PCP) Primary Care Physician ADRY JOHN MD (Family) Primary Care Physician Patient Instructions: Dependent Edema (DC) Add. Discharge Instructions: You have no evidence of blood clots or heart failure on your exam, labs, and i maging today. We recommend elevating your legs, and following back up with your OB. If you develop severe shortness of breath, or where 1 leg get significantly larger than the other, red, and painful, we would want you to come back to the ER. DARLENE ALATORRE MD Sep 06, 2022 16:43
[2022-09-06 17:01] LABS: BILIRUBIN,URINE NEGATIVE (NEGATIVE); CLARITY,URINE SL CLOUDY; COLOR,URINE YELLOW; GLUCOSE, URINE (UA) NEGATIVE (NEGATIVE); KETONES,URINE NEGATIVE (NEGATIVE); LEUKOCYTE ESTERASE ,URINE 3+ (NEGATIVE); NITRITE,URINE NEGATIVE (NEGATIVE); PROTEIN,URINE TRACE (NEGATIVE)
[2022-09-06 17:01] LABS: BASOPHILS % (AUTO) 1 % (0-10); EOSINOPHILS # (AUTO) 0.3 10^3/uL (0.0-0.3); EOSINOPHILS % (AUTO) 3 % (0-10); HEMATOCRIT 27 % (35-52); HEMOGLOBIN 8.5 g/dL (11.5-16.0); LYMPHOCYTES % (AUTO) 23 % (12-44); MEAN CORPUSCULAR HEMOGLOBIN 26 pg (25-34); MEAN CORPUSCULAR HGB CONC 32 g/dL (32-36); MEAN CORPUSCULAR VOLUME 81 fL (80-99); MEAN PLATELET VOLUME 8.5 fL (9.0-12.2); MONOCYTES # (AUTO) 0.5 10^3/uL (0.0-1.0); MONOCYTES % (AUTO) 6 % (0-12); NEUTROPHILS # (AUTO) 5.7 10^3/uL (1.8-7.8); NEUTROPHILS % (AUTO) 67 % (42-75); PLATELET COUNT 351 10^3/uL (130-400); WHITE BLOOD COUNT 8.6 10^3/uL (4.3-11.0)
[2022-09-06 17:12] LABS: ALBUMIN 3.3 GM/DL (3.2-4.5); CHLORIDE 106 MMOL/L (98-107); INR 0.9 (0.8-1.4); POTASSIUM 3.8 MMOL/L (3.6-5.0); SODIUM 140 MMOL/L (135-145)
[2022-09-06 17:13] LABS: CALCIUM 9.4 MG/DL (8.5-10.1)
[2022-09-06 17:14] LABS: GLUCOSE 83 MG/DL (70-105); TOTAL PROTEIN 6.6 GM/DL (6.4-8.2)
[2022-09-06 17:15] LABS: CARBON DIOXIDE 24 MMOL/L (21-32)
[2022-09-06 17:16] LABS: BILIRUBIN,TOTAL 0.2 MG/DL (0.1-1.0)
[2022-09-06 17:17] LABS: ALKALINE PHOSPHATASE 66 U/L (40-136)
--- NOTE | 2022-09-06 17:17 | Diagnostic Imaging Report ---
INDICATION: Shortness of breath, recent section. EXAMINATION: PA and lateral chest obtained at 5:07 p.m. FINDINGS: Heart and mediastinal silhouette are normal in appearance. The lungs are clear. There is no pneumothorax or pleural fluid. IMPRESSION: Negative chest. Dictated by: Dictated on workstation # [id number]
[2022-09-06 17:18] LABS: CREATININE SERUM 0.76 MG/DL (0.60-1.30); GFR ESTIMATED 111
[2022-09-06 17:18] LABS: BACTERIA,URINE TRACE /HPF; RBC,URINE TNTC /HPF; WBC,URINE 25-50 /HPF
[2022-09-06 17:19] LABS: BUN/CREATININE RATIO 13
[2022-09-06 17:21] LABS: ALANINE AMINOTRANSFERASE 33 U/L (0-55)
[2022-09-06 18:19] VITALS: BP 130/85
== END 2022-09-06 18:19 | disposition home or self-care (01) ==
LOC: EDUNIT# 15:56 → ER 15:58
DX: O99.893 Other specified diseases and conditions complicating puerperium (principal); R22.43 Localized swelling, mass and lump, lower limb, bilateral; Z91.040 Latex allergy status
CPT/HCPCS: 36415; 71046; 80053; 81000; 83880; 84484; 85025; 85610; 85730; 87088; 93005

== ENCOUNTER 2023-01-22 10:35 | Emergency (ER) | payer MEDICAID ==
[~2023-01-22] VITALS: Ht 160 cm; Wt 127.0 kg
[~2023-01-22 10:35] MED LIST changes: +FAMO-356 PO; -FAMO20TA3 PO
--- NOTE | 2023-01-22 11:21 | ED Integumentary General ---
General Chief Complaint: Breast Complaints Stated Complaint: BREAST PAIN/LUMP/DISCHARGE Nursing Triage Note: PT STATES RT BREAST DISCOMFORT FOR 2 DAYS, LARGE LUMP, US DONE AT THE WALKIN CLINIC YESTERDAY, DISCHARGE STARTED LAST NIGHT, NIPPLE GOING INWARD, PT WAS BREAST FEEDING 2 1/2 MONTHS AGO Source: patient Exam Limitations: no limitations History of Present Illness Date Seen by Provider: Jan 22, 2023 Time Seen by Provider: 11:00 Initial Comments 27-year-old female presents to the ER with complaint of right breast pain, swelling, erythema, and drainage from the nipple starting 2 days ago. She states the discharge is sticky, and she woke up with crusting this morning. Patient reports that she was last breast-feeding approximately 2 and half months ago. States that she did not have a lot of output when she was breast-feeding. Patient found to have a low-grade fever here, she denied known fevers. Patient was seen at the [facility] walk-in clinic yesterday and had an ultrasound. She was told that they did not find any abnormality on the ultrasound. Allergies and Home Medications Allergies Coded Allergies: latex (Verified Allergy, Unknown, 08/25/22) Patient Home Medication List Home Medication List Reviewed: Yes Cephalexin (Cephalexin) 500 Mg Tablet, 500 MG PO QID Prescribed by: Renata Ctoo on 01/22/23 1122 Cranberry Conc/Ascorbic Acid (Cranberry 12,600 mg Softgel) 12,600 Mg-20 Mg Capsule, 1 EACH PO DAILY, (Reported) Entered as Reported by: Adele Flanagan on 08/25/22 1251 Docusate Sodium (Docusate Sodium) 100 Mg Capsule, 100 MG PO BID PRN for CONSTIPATION-1ST LINE Prescribed by: NANCY AZUL on 09/01/22 0724 Famotidine (Acid Meat Cutting Teacher (FAMOTIDINE)) 20 Mg Tablet, 20 MG PO DAILY, (Reported) Entered as Reported by: Adele Flanagan on 08/25/22 1251 Ferrous Sulfate (Iron) 325 Mg Tablet, 325 MG PO DAILY, (Reported) Entered as Reported by: RONNELL ADAMSON on 09/09/20 1219 Hydrocodone/Acetaminophen (Hydrocodone-Acetamin 5-325 mg) 5 Mg-325 Mg Tablet, 1- 2 EA PO Q6HR PRN for PAIN-MODERATE (5-7) Prescribed by: NANCY AZUL on 09/01/22723 Ibuprofen (Ibu) 600 Mg Tablet, 600 MG PO Q6H Prescribed by: NANCY AZUL on 09/01/22723 Multivit-Min/Folic Acid/Biotin (Hair, Skin & Nails Caplet) 66.7 Mcg-1,000 Mcg Tablet, 3 EACH PO DAILY, (Reported) Entered as Reported by: Adele Flanagan on 08/25/22 1251 Early Branch-3/Dha/Epa/Fish Oil (Fish Oil 1,000 mg Softgel) 250 Mg-500 Mg-1,000 Mg Capsule, 1 EACH PO, (Reported) Entered as Reported by: Adele Flanagan on 08/25/22 1251 Vit No.124/Iron/FA ( Vitamin Tablet) 27 Mg Iron-800 Mcg Tablet, 1 EACH PO, (Reported) Entered as Reported by: ARA WARE on 07/24/222023 Review of Systems Review of Systems Constitutional: see HPI Past Vifhysn-Krzzri-Dzxqcx Hx Patient Social History Tobacco Use?: No Substance use?: No Alcohol Use?: No Immunizations Up To Date Tetanus Booster (TDap): Less than 5yrs PED Vaccines UTD: No First/Initial COVID19 Vaccinat: RECEIVED, UNK WHEN Second COVID19 Vaccination Max: RECEIVED, MAR 2022 Third COVID19 Vaccination Date: RECEIVED, MAR 2022 Seasonal Allergies Seasonal Allergies: Yes Past Medical History Surgery/Hospitalization HX: C SECTION, CYST REMOVAL, TUBAL LIGATION Surgeries: Yes (pilonidal cyst X2,) Section Respiratory: No Currently Using CPAP: No Currently Using BIPAP: No Cardiac: No Neurological: No Reproductive Disorders: No Female Reproductive Disorders: Denies Sexually Transmitted Disease: Yes (HERPES 1) HIV/AIDS: No Genitourinary: No Gastrointestinal: No Musculoskeletal: No Endocrine: Yes (Vitamin D deficiency, GESTATIONAL DM) Diabetes, Non-Insulin dep HEENT: No Cancer: No Psychosocial: Yes Anxiety, PTSD, Depression Integumentary: No (pilondial cyst) Blood Disorders: Yes (low iron anemia) Adverse Reaction/Blood Tranf: No Family Medical History FH: hemophilia paternal gm Physical Exam Vital Signs Vital Signs - First Documented 01/22/23 10:43 Temp 37.6 Pulse 104 Resp 20 B/P (MAP) 117/78 (91) Pulse Ox 98 O2 Delivery Room Air Capillary Refill : Less Than 3 Seconds General Appearance: WD/WN, no apparent distress Neck: supple, normal inspection Cardiovascular: regular rate, rhythm Respiratory: lungs clear, normal breath sounds, no respiratory distress, no accessory muscle use Extremities: normal range of motion, normal inspection Neurologic/Psychiatric: alert, normal mood/affect Skin: normal color, warm/dry Skin Problem Location: torso (Right breast) Skin Problem Character: erythema, swelling, tenderness Progress/Results/Core Measures Results/Orders Vital Signs/I&O 01/22/23 10:43 Temp 37.6 Pulse 104 Resp 20 B/P (MAP) 117/78 (91) Pulse Ox 98 O2 Delivery Room Air Blood Pressure Mean: 91 Progress Progress Note : Progress Note Patient seen and evaluated, resting comfortably in bed, no acute distress. Based on exam and symptoms, this is likely mastitis. Will treat patient with Keflex antibiotic. Patient instructed to call her ANESTHETIC ASSISTANT, Dr. John, on Tuesday to schedule a follow-up appointment. Patient also instructed to apply warm compresses to her breast several times a day. Patient is stable for discharge. Discharge instructions and return precautions provided. Departure Impression Primary Impression: Mastitis Disposition: 01 HOME, SELF-CARE Condition: Stable Departure-Patient Inst. Decision time for Depature: 11:20 Referrals: [facility] [place] ([place]) Primary Care Physician ADRY JOHN MD (Family) Primary Care Physician Patient Instructions: Mastitis Add. Discharge Instructions: Complete full course of antibiotic as prescribed. Apply warm compresses to your breast several times a day for the next couple days. Call Dr. John's office on Tuesday to schedule a follow-up appointment for next week. Return for any other new, concerning, or worsening symptoms. All discharge instructions reviewed with patient and/or family. Voiced understanding. Scripts Cephalexin (Cephalexin) 500 Mg Tablet 500 MG PO QID for 10 Days, #20 TAB 0 Refills Prov: RENATA PRESTON APRN 01/22/23 RENATA PRESTON APRN Jan 22, 2023 11:21
[2023-01-22] MEDS ORDERED: CEPH500T PO (11:22)
[2023-01-22 11:34] VITALS: BP 117/78
== END 2023-01-22 11:34 | disposition home or self-care (01) ==
LOC: EDUNIT# 10:35 → ER 10:36
DX: N61.0 Mastitis without abscess (principal); Z91.040 Latex allergy status
CPT/HCPCS: 99281